=== PATIENT | male | born 1935 | race Caucasian/White ===

== ENCOUNTER 2017-04-13 22:04 | Emergency (ER) | payer MEDICARE, BC ==
[2017-04-13] MEDS ORDERED: Ondansetron INJ* 2 MG/ML VIAL IV ONE (22:18)
[2017-04-13] MEDS ORDERED: NS 0.9% 1000 ML* 1,000 ML IV ONE (22:18)
[2017-04-13 22:37] LABS: Hematocrit 46 % (42-52); Hemoglobin 15.5 g/dl (14.0-18.0); Mean Corpuscular HGB Conc 34 g/dl (31-36); Mean Corpuscular Hemoglobin 31 pg (27-31); Mean Corpuscular Volume 91 fL (80-94); Mean Platelet Volume 10 um3 (7.4-10.4); Red Blood Count 5.09 10^6/ul (4.0-5.4); Red Cell Distribution Width 15 % (10.5-15); White Blood Count 15.1 10^3/ul (3.5-10.8)
[2017-04-13 22:42] LABS: Comments Flag Yes
[2017-04-13 22:43] LABS: Add Diff/Slide Review? Slide Review Added
[2017-04-13 22:52] LABS: Albumin 4.1 g/dL (3.2-5.2); BUN/Creatinine Ratio 13.5 (8-20); Calcium 9.2 mg/dL (8.6-10.3); EGFR African American 21.7 (>60); EGFR Non-African American 16.9 (>60); Globulin 2.8 g/dL (2-4); Magnesium 1.8 mg/dL (1.9-2.7); Potassium 4.7 mmol/L (3.5-5.0); Total Bilirubin 0.8 mg/dL (0.2-1.0); Total Protein 6.9 g/dL (6.4-8.9)
[2017-04-13 22:54] LABS: Troponin I 0.02 ng/mL (<0.04)
--- NOTE | 2017-04-13 23:27 | ED ---
Eliana Tanner Erika, scribed for Luis Gomes MD on 04/13/17 at 2223 . Complex/Multi-Sys Presentation - HPI Summary HPI Summary: Patient is an 82-year-old male presenting to the ED with a CC of weakness. Per family, patient was started on an antibiotic on 04/09/2017 for right lower extremity cellulitis. Pain in leg is still noted. Antibiotics made pt nauseated , so he has had decreased PO intake - family states pt is dehydrated. Pt discontinued use of the antibiotic today without consulting his doctor because they were concerned about low PO intake since pt has DM. Pt has been increasingly weak, with SOB worse than baseline. Pt also reported he "thought he had a UTI" per family. - History Of Current Complaint Chief Complaint: EDWeakness Hx Obtained From: Patient, Family/Lottery Sales Clerk Onset/Duration: Gradual Onset, Lasting Days, Still Present Timing: Constant Severity Currently: Moderate Severity Initially: Mild Location: Pain At: - R lower extremity Aggravating Factor(s): Nausea secondary to antibiotics Associated Signs And Symptoms: Positive: Weakness, Nausea, Decreased Oral Intake , Other - UTI sx - Allergies/Home Medications Allergies/Adverse Reactions: Allergies Allergy/AdvReac Type Severity Reaction Status Date / Time Cephalexin [From Keflex] Allergy Rash Verified 06/19/16 06:58 Diphenhydramine Allergy Itching Verified 06/12/16 08:07 Home Medications: Home Medications Amoxicillin/Clavulanate TAB* [Augmentin TAB 500 mg*] 500 mg PO BID 04/13/17 [ History Confirmed 04/13/17] Magnesium Oxide TAB* [MagOx 400 TAB*] 400 mg PO DAILY 04/13/17 [History Confirmed 04/13/17] Metoprolol & Hydrochlorothiazi [Metoprolol Succinate ER/H 50-12.5 mg] 1 tab PO DAILY 04/13/17 [History Confirmed 04/13/17] Repaglinide TAB* [Prandin TAB*] 1 mg PO AC 04/13/17 [History Confirmed 04/13/17] PMH/Surg Hx/FS Hx/Imm Hx Endocrine/Hematology History: Reports: Hx Diabetes - TYPE 2, Hx Thyroid Disease - HYPOTHYROIDISM Denies: Hx Anemia Cardiovascular History: Reports: Hx Hypertension - CONTROL WITH MED, Other Cardiovascular Problems/Disorders - DVT - 5-6 YEARS AGO Respiratory History: Reports: Hx Pulmonary Embolism - 5-6 YEARS AGO, Other Respiratory Problems/Disorders - HX OF DVT AND PE GI History: Reports: Hx Gastroesophageal Reflux Disease - CONTROL WITH MEDS Denies: Hx Jaundice Musculoskeletal History: Reports: Hx Arthritis Sensory History: Reports: Hx Cataracts - BILATERAL, Hx Contacts or Glasses - GLASSES, Hx Hearing Aid - [place] - HAS HEARING AIDES - BUT DOES NOT WEAR Opthamlomology History: Reports: Hx Cataracts - BILATERAL, Hx Contacts or Glasses - GLASSES - Cancer History Cancer Type, Location and Year: melanoma - Surgical History Surgery Procedure, Year, and Place: umbilical hernia repair. carpal tunnel. RADICAL NECK SURGERY, [facility] Hx Anesthesia Reactions: No Infectious Disease History: No Infectious Disease History: Reports: Hx Shingles Denies: History Other Infectious Disease, Traveled Outside the [place] in Last 30 Days - Family History Family History: Denies FHx anesthesia reaction - Social History Alcohol Use: Rare Hx Substance Use: No Substance Use Type: Reports: None Hx Tobacco Use: Yes Smoking Status (MU): Former Smoker Type: Cigarettes Have You Smoked in the Last Year: No Review of Systems Positive: Shortness Of Breath Positive: Nausea - with decreased PO intake Genitourinary: Other - UTI sx Skin: Other - Cellulitis right lower extremity with pain Positive: Weakness - generalized All Other Systems Reviewed And Are Negative: Yes Physical Exam Triage Information Reviewed: Yes Vital Signs On Initial Exam: Initial Vitals Temp Pulse Resp BP Pulse Ox 98.2 F 78 30 147/69 96 04/13/17 22:06 04/13/17 22:06 04/13/17 22:06 04/13/17 22:06 04/13/17 22:06 Vital Signs Reviewed: Yes Appearance: Positive: No Pain Distress Skin: Positive: Warm Head/Face: Positive: Normal Head/Face Inspection Eyes: Positive: PEE ENT: Positive: Hearing grossly normal Neck: Positive: Supple Respiratory/Lung Sounds: Positive: Breath Sounds Present Cardiovascular: Positive: RRR Abdomen Description: Positive: Nontender, Soft Musculoskeletal: Positive: Other - lt lower leg, mild erythema and warmth Neurological: Positive: Alert, Oriented to Person Place, Time Diagnostics - Vital Signs Vital Signs Temp Pulse Resp BP Pulse Ox 04/13/17 22:06 98.2 F 78 30 147/69 96 - Laboratory Lab Results: Lab Results 0504/13/17 04/13/17 Range/Units 22:20 22:20 22:20 WBC 15.1 H (3.5-10.8) 10^3/ul RBC 5.09 (4.0-5.4) 10^6/ul Hgb 15.5 (14.0-18.0) g/dl Hct 46 (42-52) % MCV 91 (80-94) fL MCH 31 (27-31) pg MCHC 34 (31-36) g/dl RDW 15 (10.5-15) % Plt Count 113 L (150-450) 10^3/ul MPV 10 (7.4-10.4) um3 Neut % (Auto) 45.6 (38-83) % Lymph % (Auto) 42.5 (25-47) % Fergus % (Auto) 10.2 H (1-9) % Eos % (Auto) 0.2 (0-6) % Baso % (Auto) 1.5 (0-2) % Absolute Neuts (auto) 6.9 (1.5-7.7) 10^3/ul Absolute Lymphs (auto) 6.4 H (1.0-4.8) 10^3/ul Absolute Monos (auto) 1.5 H (0-0.8) 10^3/ul Absolute Eos (auto) 0 (0-0.6) 10^3/ul Absolute Basos (auto) 0.2 (0-0.2) 10^3/ul Absolute Nucleated RBC 0.02 10^3/ul Nucleated RBC % 0.1 Hem Pathologist Commnt Pending Sodium 131 L (133-145) mmol/L Potassium 4.7 (3.5-5.0) mmol/L Chloride 100 L (101-111) mmol/L Carbon Dioxide 21 L (22-32) mmol/L Anion Gap 10 (2-11) mmol/L BUN 47 H (6-24) mg/dL Creatinine 3.49 H (0.67-1.17) mg/dL Est GFR ( Amer) 21.7 (>60) Est GFR (Non-Af Amer) 16.9 (>60) BUN/Creatinine Ratio 13.5 (8-20) Glucose 154 H (70-100) mg/dL Lactic Acid 1.5 (0.5-2.0) mmol/L Calcium 9.2 (8.6-10.3) mg/dL Magnesium 1.8 L (1.9-2.7) mg/dL Total Bilirubin 0.80 (0.2-1.0) mg/dL AST 14 (13-39) U/L ALT 10 (7-52) U/L Alkaline Phosphatase 61 (34-104) U/L Troponin I 0.02 (<0.04) ng/mL B-Natriuretic Peptide ( - 100) pg/mL Total Protein 6.9 (6.4-8.9) g/dL Albumin 4.1 (3.2-5.2) g/dL Globulin 2.8 (2-4) g/dL Albumin/Globulin Ratio 1.5 (1-3) // Range/Units 22:20 WBC (3.5-10.8) 10^3/ul RBC (4.0-5.4) 10^6/ul Hgb (14.0-18.0) g/dl Hct (42-52) % MCV (80-94) fL MCH (27-31) pg MCHC (31-36) g/dl RDW (10.5-15) % Plt Count (150-450) 10^3/ul MPV (7.4-10.4) um3 Neut % (Auto) (38-83) % Lymph % (Auto) (25-47) % Fergus % (Auto) (1-9) % Eos % (Auto) (0-6) % Baso % (Auto) (0-2) % Absolute Neuts (auto) (1.5-7.7) 10^3/ul Absolute Lymphs (auto) (1.0-4.8) 10^3/ul Absolute Monos (auto) (0-0.8) 10^3/ul Absolute Eos (auto) (0-0.6) 10^3/ul Absolute Basos (auto) (0-0.2) 10^3/ul Absolute Nucleated RBC 10^3/ul Nucleated RBC % Hem Pathologist Commnt Sodium (133-145) mmol/L Potassium (3.5-5.0) mmol/L Chloride (101-111) mmol/L Carbon Dioxide (22-32) mmol/L Anion Gap (2-11) mmol/L BUN (6-24) mg/dL Creatinine (0.67-1.17) mg/dL Est GFR ( Amer) (>60) Est GFR (Non-Af Amer) (>60) BUN/Creatinine Ratio (8-20) Glucose (70-100) mg/dL Lactic Acid (0.5-2.0) mmol/L Calcium (8.6-10.3) mg/dL Magnesium (1.9-2.7) mg/dL Total Bilirubin (0.2-1.0) mg/dL AST (13-39) U/L ALT (7-52) U/L Alkaline Phosphatase (34-104) U/L Troponin I (<0.04) ng/mL B-Natriuretic Peptide 205 H ( - 100) pg/mL Total Protein (6.4-8.9) g/dL Albumin (3.2-5.2) g/dL Globulin (2-4) g/dL Albumin/Globulin Ratio (1-3) Result Diagrams: 04/13/17 22:20 04/13/17 22:20 Lab Statement: Any lab studies that have been ordered have been reviewed, and results considered in the medical decision making process. - Radiology CXR Xray Interpretation: No Acute Changes Radiology Interpretation Completed By: ED Physician - EKG 22:17 EKG Interpretation: Atrial Fibrillation with moderate ventricular response at 74 bpm Re-Evaluation - Re-Evaluation First Eval Re-Evaluation Time: 23:45 Change: Improved Comment: Discussed results with patient. Patient requests discharge at this time. Complex Multi-Symp Course/Dx Assessment/Plan: An 82 y/o M presents to the ED with a CC of generalized weakness after taking antibiotics for his cellulitis, as antibiotics made pt nauseated leading to decreased PO intake. Pt is being treated for RLE cellulitis. Pt is given IV fluids and zofran in the ED course. On re-evaluation , patient requests discharge, stating that he wants to go home. Patient is advised to continue taking his prescribed medications and to keep his follow up appointment with his PCP on Friday. - Diagnoses Provider Diagnoses: Cellulitis Discharge - Discharge Plan Condition: Stable Disposition: HOME Patient Education Materials: Cellulitis (ED) Referrals: El Ortiz MD [Primary Care Provider] - 2 Days Additional Instructions: Please continue your present medications as previously prescribed. Keep the doctor's appointment you have on Friday as follow up. The documentation as recorded by the Eliana luu Erika accurately reflects the service I personally performed and the decisions made by me, Luis Gomes MD.
[2017-04-14] MEDS ORDERED: Ondansetron TAB* 4 MG ONE (00:10)
[2017-04-14] MEDS ORDERED: Ondansetron ODT TAB* 4 MG PO ONE (00:11)
[2017-04-14 00:15] VITALS: BP 133/80
--- NOTE | 2017-04-14 06:56 | RAD ---
INDICATION: Weakness COMPARISON: Chest x-ray May 20, 2016 TECHNIQUE: PA and lateral views were obtained. FINDINGS: Bones/Soft Tissues: There are no acute bony findings. Cardiomediastinal: The cardiomediastinal silhouette is normal. Lungs: There are no infiltrates. Pleura: There are no pleural effusions. Other: None IMPRESSION: NO ACTIVE DISEASE.
== END 2017-04-14 00:31 | disposition home or self-care (01) ==
LOC: ED 22:04
DX: L03.90 Cellulitis, unspecified (principal); R53.1 Weakness; R11.0 Nausea; Z87.891 Personal history of nicotine dependence; R06.02 Shortness of breath
CPT/HCPCS: 36415; 71020; 80053; 83605; 83735; 83880; 84484; 85025; 85060; 93005; 96374; 99283; A9270-GY; J2405

== ENCOUNTER 2019-02-08 02:16 | Inpatient (IN) | payer MEDICARE, BC ==
--- NOTE | 2019-02-08 02:45 | ED ---
GI/ HPI - HPI Summary HPI Summary: This patient is an 84 year old M presenting to [facility] accompanied by family with a chief complaint of dysuria that began approximately one week ago. The patient rates the pain 10/10 in severity. Symptoms aggravated by nothing. Symptoms alleviated by nothing. Patient reports weakness, hematuria, decreased appetite, nausea, chills, suprapubic abd pain, and SOB. - History of Current Complaint Chief Complaint: EDShortnessOfBreath Time Seen by Provider: 02/08/19 02:34 Stated Complaint: SOB PER PT'S DAUGHTER Hx Obtained From: Patient Onset/Duration: Started Weeks Ago, Atraumatic, Still Present Timing: Constant Severity: Severe Current Severity: Severe Pain Intensity: 10 Location of Pain: Suprapubic Associated Signs and Symptoms: Positive: Other: - Positive weakness, hematuria, decreased appetite, nausea, chills, suprapubic abd pain, and SOB. Aggravating Factor(s): Nothing Alleviating Factor(s): Nothing - Additional Pertinent History Primary Care Physician: [id number] - Allergy/Home Medications Allergies/Adverse Reactions: Allergies Allergy/AdvReac Type Severity Reaction Status Date / Time cephalexin [From Keflex] Allergy Rash Verified 02/08/19 03:10 diphenhydramine Allergy Itching Verified 02/08/19 03:10 Home Medications: Home Medications Insulin Glargine,Hum.rec.anlog [Basaglar Kwikpen U-100] 20 - 24 units SUBCUT BID 02/08/19 [History Confirmed 02/08/19] Insulin Lispro [Humalog Kwikpen U-100] 30 units SUBCUT DAILY WITH MEAL 02/08/19 [History Confirmed 02/08/19] Mirabegron (NF) [Myrbetriq (NF)] 25 mg PO DAILY 02/08/19 [History Confirmed ] PMH/Surg Hx/FS Hx/Imm Hx Previously Healthy: No Endocrine/Hematology History: Reports: Hx Diabetes - TYPE 2, Hx Thyroid Disease - HYPOTHYROIDISM Denies: Hx Anemia Cardiovascular History: Reports: Hx Hypertension - CONTROL WITH MED, Other Cardiovascular Problems/Disorders - DVT - 5-6 YEARS AGO Respiratory History: Reports: Hx Pulmonary Embolism - 5-6 YEARS AGO, Other Respiratory Problems/Disorders - HX OF DVT AND PE GI History: Reports: Hx Gastroesophageal Reflux Disease - CONTROL WITH MEDS Denies: Hx Jaundice Musculoskeletal History: Reports: Hx Arthritis Sensory History: Reports: Hx Cataracts - BILATERAL, Hx Contacts or Glasses - GLASSES, Hx Hearing Aid - VERY [place] - HAS HEARING AIDES - BUT DOES NOT WEAR Opthamlomology History: Reports: Hx Cataracts - BILATERAL, Hx Contacts or Glasses - GLASSES - Cancer History Cancer Type, Location and Year: melanoma - Surgical History Surgery Procedure, Year, and Place: umbilical hernia repair. carpal tunnel. RADICAL NECK SURGERY, [facility] Hx Anesthesia Reactions: No Infectious Disease History: No Infectious Disease History: Reports: Hx Shingles Denies: History Other Infectious Disease, Traveled Outside the [place] in Last 30 Days - Family History Known Family History: Positive: Other Family History: Denies FHx anesthesia reaction - Social History Occupation: Retired Lives: With Family Alcohol Use: Rare Hx Substance Use: No Substance Use Type: Reports: None Hx Tobacco Use: Yes Smoking Status (MU): Former Smoker Type: Cigarettes Have You Smoked in the Last Year: No Review of Systems Positive: Chills Positive: Shortness Of Breath Positive: Abdominal Pain, Nausea, Other - Positive decreased appetite Positive: dysuria, hematuria Positive: Weakness All Other Systems Reviewed And Are Negative: Yes Physical Exam - Summary Physical Exam Summary: VITAL SIGNS: Reviewed. GENERAL: Patient is a well-developed and nourished male who is lying comfortable in the stretcher. Patient is not in any acute respiratory distress. HEAD AND FACE: No signs of trauma. No ecchymosis, hematomas or skull depressions. No sinus tenderness. EYES: PERRLA, EOMI x 2, No injected conjunctiva, no nystagmus. EARS: Hearing grossly intact. Ear canals and tympanic membranes are within normal limits. MOUTH: Oropharynx within normal limits. NECK: Supple, trachea is midline, no adenopathy, no JVD, no carotid bruit, no c- spine tenderness, neck with full ROM. CHEST: Symmetric, no tenderness at palpation LUNGS: Clear to auscultation bilaterally. No wheezing or crackles. Decreased breath sounds bilaterally CVS: Regular rate and irregular rhythm, S1 and S2 present, no murmurs or gallops appreciated. ABDOMEN: Soft, non-tender. Distention. No rebound no guarding, and no masses palpated. Bowel sounds are normal. EXTREMITIES: FROM in all major joints, no edema, no cyanosis or clubbing. NEURO: Alert and oriented x 3. No acute neurological deficits. Speech is normal and follows commands. SKIN: Dry and warm Triage Information Reviewed: Yes Vital Signs On Initial Exam: Initial Vitals Temp Pulse Resp BP Pulse Ox 98.7 F 89 18 149/102 91 02/08/19 02:25 02/08/19 02:25 02/08/19 02:25 02/08/19 02:25 02/08/19 02:25 Vital Signs Reviewed: Yes Diagnostics - Vital Signs Vital Signs Temp Pulse Resp BP Pulse Ox 02/08/19 02:37 87 128/84 86 02/08/19 02:35 80 92 02/08/19 02:25 98.7 F 89 18 149/102 91 - Laboratory Result Diagrams: 02/08/19 03:13 02/08/19 03:13 Lab Statement: Any lab studies that have been ordered have been reviewed, and results considered in the medical decision making process. - Radiology CXR Radiology Interpretation Completed By: ED Physician Summary of Radiographic Findings: CXR reveals, per ED physician, bilateral basal infiltrate. - CT CT Abdomen and Pelvis CT Interpretation Completed By: Radiologist Summary of CT Findings: CT abdomen and pelvis reveals, per radiologist, Bilateral renal cysts. Infiltrates in the lower lobes bilaterally. Old granulomatous disease. Thickened bladder wall suggesting cystitis. Enlarged prostate gland. Changes involving the spine, as described above. Cholelithiasis. Colonic diverticulosis. ED physician has reviewed this radiology report. - EKG 0407 Cardiac Rate: NL EKG Rhythm: Atrial Flutter - 70 BPM Summary of EKG Findings: An EKG taken at 0407 reveals Aflutter 4:1 at rate of 70 BPM, left axis deviation, and no acute ischemic changes. GIGU Course/Dx - Course Course Of Treatment: This patient is an 84 year old M presenting to [facility] accompanied by family with a chief complaint of dysuria that began approximately one week ago. Physical Exam Findings: Decreased breath sounds bilaterally. Irregular rhythm. Abd distension. An EKG taken at 0407 reveals Aflutter 4:1 at rate of 70 BPM, left axis deviation, and no acute ischemic changes. CXR reveals, per ED physician, bilateral basal infiltrate. CT abdomen and pelvis reveals, per radiologist, Bilateral renal cysts. Infiltrates in the lower lobes bilaterally. Old granulomatous disease. Thickened bladder wall suggesting cystitis. Enlarged prostate gland. Changes involving the spine, as described above. Cholelithiasis. Colonic diverticulosis. Bloodwork and UA obtained. In the ED course the patient was given duoneb, albuterol, fluids, phenazopyridine, and Zosyn. Consult with Dr. Devine (hospitalist) at 0522. He agrees to admit the pt for further evaluation. The patient is agreeable with this plan. - Diagnoses Provider Diagnoses: UTI (urinary tract infection), Pneumonia - Physician Notifications Discussed Care Of Patient With: Rodríguez Devine Time Discussed With Above Provider: 05:22 Instructed by Provider To: Other - Consult with Dr. Devine (hospitalist) at 0522. He agrees to admit the pt for further evaluation. - Critical Care Time Critical Care Time: 30-74 min - 45 min Discharge - Sign-Out/Discharge Documenting (check all that apply): Patient [place]arture [place] [facility] [place] Received Moderate/Deep Sedation with Procedure: No - Discharge Plan Condition: Stable Disposition: ADMITTED TO [facility] Referrals: El Ortiz MD [Primary Care Provider] - - Attestation Statements Document Initiated by Scribe: Yes Documenting Scribe: Ainsley Smart Provider For Whom Sofyibe is Documenting (Include Credential): Dr. Kim Bernard MD Scribe Attestation: I, Ainsley Smart, scribed for Dr. Kim Bernard MD on 02/08/19 at 0529. Status of Scribe Document: Ready
[2019-02-08] MEDS ORDERED: Albuterol/Ipratropium NEB.SOL* Albuterol 2.5 MG/Ipratropium 0.5 MG 3 ML INH ONE (02:47)
[2019-02-08] MEDS ORDERED: Albuterol 2.5 MG/3 ML NEB.SOL* (0.083%) INH PRN (02:47)
[2019-02-08 03:25] LABS: Hematocrit 48 % (36-46); Hemoglobin 15.8 g/dL (14.0-18.0); Mean Corpuscular HGB Conc 33 g/dL (31-36); Mean Corpuscular Hemoglobin 30 pg (27-31); Mean Corpuscular Volume 90 fL (80-94); Mean Platelet Volume 9.3 fL (7.4-10.4); Platelet Count 111 10^3/uL (150-450); Red Blood Count 5.29 10^6 /uL (4.18-5.48); Red Cell Distribution Width 15 % (10.5-15); White Blood Count 14.2 10^3/uL (3.5-10.8)
[2019-02-08 03:31] LABS: ABS Basophils 0 10^3/ul (0-0.2); ABS Eosinophils 0 10^3/ul (0-0.6); ABS Lymphocytes 3.1 10^3/ul (1.0-4.8); ABS Monocytes 1.7 10^3/ul (0-0.8); ABS Neutrophils 9.4 10^3/ul (1.5-7.7); ABS Nucleated RBC 0 10^3/ul
[2019-02-08 03:35] LABS: Activated Partial Thrombo Time 39.2 seconds (26.0-36.3); INR 2.01 (0.77-1.02)
[2019-02-08 03:38] LABS: Urine Appearance Turbid; Urine Bacteria Absent (Absent); Urine Bilirubin Negative (Negative); Urine Blood 3+ (Negative); Urine Glucose 1+(50 mg/dL) (Negative); Urine Ketones Negative (Negative); Urine Nitrite Negative (Negative); Urine Protein 2+(100 mg/dL) (Negative); Urine Red Blood Cell 3+(>10/hpf) (Absent); Urine Specific Gravity 1.012 (1.010-1.030); Urine Urobilinogen Negative (Negative); Urine White Blood Cell 3+(>20/hpf) (Absent)
[2019-02-08] MEDS: NS 0.9% 1000 ML** 2,000 ML IV ONE ×2 (03:41→05:40)
[2019-02-08 03:44] LABS: Urine Color Red
[2019-02-08 03:49] LABS: Eosinophil % 0.2 %; Lymphocyte % 21.6 %; Nucleated Red Blood Cells % 0
[2019-02-08 03:54] LABS: ALT 10 U/L (7-52); AST 13 U/L (13-39); Albumin 4.1 g/dL (3.2-5.2); Albumin/Globulin Ratio 1.5 (1-3); Alkaline Phosphatase 86 U/L (34-104); Anion Gap 11 mmol/L (2-11); BUN/Creatinine Ratio 16.8 (8-20); Blood Urea Nitrogen 62 mg/dL (6-24); CO2 Carbon Dioxide 25 mmol/L (22-32); Calcium 9.6 mg/dL (8.6-10.3); Chloride 101 mmol/L (101-111); EGFR Non-African American 15.7 (>60); Globulin 2.8 g/dL (2-4); Glucose 203 mg/dL (70-100); Potassium 4.9 mmol/L (3.5-5.0); Sodium 137 mmol/L (135-145); Total Protein 6.9 g/dL (6.4-8.9)
[2019-02-08] MEDS ORDERED: Piperacillin/Tazobac ADVAN(*) 3.375 GM in NS 0.9% 100 ML* 100 ML IVPB ONE (03:58)
[2019-02-08 04:01] LABS: Troponin I 0.04 ng/mL (<0.04)
[2019-02-08 04:21] LABS: Influenza A Molecular NEGATIVE (Negative); Influenza B Molecular NEGATIVE (Negative)
[2019-02-08] MEDS ORDERED: Phenazopyridine TAB* 100 MG PO ONE (04:57)
[2019-02-08] MEDS ORDERED: Acetaminophen TAB* 325 MG PO PRN (08:42)
[2019-02-08] MEDS ORDERED: traMADol TAB* 50 MG PO PRN (08:45)
[2019-02-08] MEDS ORDERED: Dextrose 50% Syringe 50 ML* 25 GM/50 ML SYRINGE IV PUSH PRN ×2 (08:54→12:24)
--- NOTE | 2019-02-08 10:57 | HP ---
HISTORY AND PHYSICAL: DATE OF ADMISSION: 02/08/19 TIME OF ADMISSION: 9 a.m. PRIMARY CARE PHYSICIAN: El Ortiz MD. CHIEF COMPLAINT: "My daughter recommended it." HISTORY OF PRESENT ILLNESS: This is an 84-year-old man with history of BPH, COPD, and diabetes, who presents to the ED with dysuria for the past 2 days. He says that he has had bladder infections before, but they have never been this severe. The pain when he is urinating is excruciating and so they decided to come to the emergency room last night. He has not had any fevers, flank pain. His daughter does report that he has had decreased energy, decreased appetite, and some nausea. In the ED, he had a CT abdomen and pelvis, which showed a thickened bladder wall suggesting flatus, positive urinalysis, and also infiltrates in his lower lobes bilaterally. His daughter was apprised here that he had infiltrates. He has shortness of breath always, but it is unchanged from baseline. He also always has a cough and they agree that it is unchanged from baseline as well. On further questioning, he thinks he may have increased sputum production, but he would not have noticed it unless we had asked. PAST MEDICAL HISTORY: COPD, he has never been on home oxygen; atrial flutter, on anticoagulation; CKD stage 4; BPH; type 2 diabetes; hypertension; history of DVT 5 years ago; and PE. His family says he has a history of CHF and follows with a pin cleaner in [place]. He had throat cancer in the 70s. MEDICATIONS: 1. He takes Humalog 10 units before dinner. 2. Basaglar 24 units at night and 20 units in the morning. 3. Lasix 20 mg daily. 4. Metoprolol/HCTZ 50/12.5 mg daily. 5. Allopurinol 100 mg daily. 6. Lipitor 20 mg q.h.s. 7. Levothyroxine 125 mcg daily at bedtime. 8. Mag-Ox 400 mg daily. 9. Mirabegron 25 mg daily. 10. Omeprazole 20 mg daily. 11. Terazosin 2 mg b.i.d. 12. Tramadol 100 mg q.12 p.r.n. pain. 13. Warfarin 2.5 mg daily. ALLERGIES: KEFLEX and BENADRYL. FAMILY HISTORY: Positive for Hodgkin's lymphoma in his mother. SOCIAL HISTORY: He lives with his , Livia; and his daughter, Mary, is living with them and helping them. He is a former smoker and quit 40 years ago. He smoked for 25 years. He drinks 1 beer per week. He does not have an advance directives. REVIEW OF SYSTEMS: As per the HPI. Remainder of 14-point review of systems is negative. PHYSICAL EXAMINATION GENERAL: Alert, elderly man, in no distress. He is extremely hard of hearing. VITAL SIGNS: Temperature 98 degrees, heart rate 85, respiratory rate 16, pulse ox 94% on 3 L, blood pressure 153/97. HEENT: Pupils are 3 mm bilaterally and reactive to light. Oral mucosa is dry. Pharynx is erythematous with no exudates. He has dentures in place. NECK: He has a left neck deformity from a prior surgery. No cervical adenopathy. CHEST: He has an irregular rhythm with no murmur. His lungs are clear bilaterally. ABDOMEN: Soft, nontender, nondistended. It is protuberant and obese. He has no CVA tenderness. No suprapubic tenderness. EXTREMITIES: 1+ pitting edema to his knees. He has some chronic skin changes in the right roth. NEUROLOGIC: His strength is 5/5 and is oriented x3. DIAGNOSTIC STUDIES/LAB DATA: White blood cells 14.2, hemoglobin 15.8, platelets 111. INR 2.01. Sodium 137, potassium 4.9, chloride 101, bicarb 25, BUN 62, creatinine 3.69, glucose 203, lactic acid 1.4, troponin 0.04, BNP 163. Urinalysis has 2+ protein, 3+ blood, 3+ leuk esterase, 3+ WBCs, and influenza A and B are negative. CT abdomen and pelvis showed bilateral renal cysts, infiltrates in the lower lobes bilaterally, old granulomatous disease, thickened bladder wall suggesting cystitis, enlarged prostate gland, changes involving the spine including multilevel degenerative disk disease, cholelithiasis, and colonic diverticulosis. EKG shows atrial flutter with a 4:1 block and left axis deviation. ASSESSMENT AND PLAN: This is an 84-year-old man with history of atrial flutter , chronic kidney disease, and diabetes, who presents to the emergency department with dysuria and was found to have a urinary tract infection and bilateral lung infiltrates. 1. Acute cystitis versus prostatitis. Urine culture is pending. Blood cultures have also been sent and he has received Zosyn in the emergency department. I would like to start him on ceftriaxone to cover urinary and pulmonary sources; however, he has an allergy to KEFLEX listed and he says he has no idea what it was and it was years ago. His daughter is going to ask his and report back to see if we can start a cephalosporin. 2. Bilateral lung infiltrates. He has no pulmonary complaints except a possible increase in sputum production, so we will culture his sputum. I will get urine antigens and we will wait to hear his reaction to cephalosporins. 3. Acute kidney injury on chronic kidney disease. This appears to be an acute kidney injury, though our most recent creatinine was July 2018. His BUN is also certainly elevated from then. I suspect this is related to infection and I will hold his Lasix. He has received 1 L of IV fluid in the emergency department. His family reports that history of heart failure. We will hold off on any more fluids and allow him to equilibrate. 4. Atrial flutter. I am continuing his metoprolol. His INR is at goal, so continuing his warfarin as well. 5. Chronic obstructive pulmonary disease. His family requests test for qualification of oxygen. Once he gets closer to discharge, we can do an ambulatory pulse ox or a nocturnal pulse ox. 6. Hypertension. I am holding his HCTZ in the setting of volume depletion. He is normotensive. 7. DVT prophylaxis. Contraindicated in the setting of therapeutic anticoagulation. 8. Diet. Unrestricted. 9. Type 2 diabetes. I am continuing his home Humalog dose and converting his Basaglar to Lantus. [id number]/[facility] #: [id number] [facility]
[2019-02-08] MEDS: Insulin GLARGINE(*) 1 UNITS UNIT SUBCUT SCH ×2 (11:07→23:41)
[2019-02-08] MEDS: Metoprolol Succinate XL TAB* 50 MG PO SCH (11:07)
[2019-02-08] MEDS: Allopurinol TAB* 100 MG PO SCH (11:07)
[2019-02-08] MEDS: Magnesium Oxide TAB* 400 MG PO SCH (11:07)
[2019-02-08] MEDS: Terazosin CAP* 1 MG PO SCH ×2 (11:09→23:42)
[2019-02-08] MEDS: PTO: Mirabegron (NF) 25 MG TAB PO SCH (11:11)
[2019-02-08] MEDS: Insulin LISPRO* 1 UNITS UNIT SUBCUT SCH ×4 (12:52→23:40)
[2019-02-08] MEDS: cefTRIAXone(*) 1 GM in NS 0.9% 50 ML* 50 ML IVPB SCH (12:52)
[2019-02-08] MEDS: Warfarin TAB(*) 2.5 MG PO SCH (17:25)
[2019-02-08] MEDS: Pantoprazole TAB * 40 MG TAB PO SCH (17:25)
[2019-02-08] MEDS ORDERED: Insulin GLARGINE(*) 1 UNITS UNIT SUBCUT SCH (18:00)
[2019-02-08] MEDS: Atorvastatin* 20 MG TAB PO SCH (23:42)
[2019-02-08] MEDS: Levothyroxine TAB* 137 MCG TAB PO SCH (23:42)
[2019-02-09] MEDS ORDERED: GuaiFENesin DM* 5 ML UDC PO PRN (00:21)
[2019-02-09 06:23] LABS: Hematocrit 42 % (36-46); Hemoglobin 13.9 g/dL (14.0-18.0); Mean Corpuscular HGB Conc 33 g/dL (31-36); Mean Corpuscular Hemoglobin 30 pg (27-31); Mean Corpuscular Volume 90 fL (80-94); Red Blood Count 4.68 10^6 /uL (4.18-5.48); Red Cell Distribution Width 15 % (10.5-15); White Blood Count 11.2 10^3/uL (3.5-10.8)
[2019-02-09 06:49] LABS: ABS Basophils 0 10^3/ul (0-0.2); ABS Eosinophils 0.1 10^3/ul (0-0.6); ABS Lymphocytes 3.5 10^3/ul (1.0-4.8); ABS Monocytes 1.4 10^3/ul (0-0.8); ABS Neutrophils 6.3 10^3/ul (1.5-7.7); ABS Nucleated RBC 0 10^3/ul; Eosinophil % 0.6 %; Lymphocyte % 31.3 %; Mean Platelet Volume 9.6 fL (7.4-10.4); Nucleated Red Blood Cells % 0.2; Platelet Count 95 10^3/uL (150-450)
[2019-02-09 07:05] LABS: BUN/Creatinine Ratio 17.5 (8-20); Calcium 8.8 mg/dL (8.6-10.3); EGFR African American 20.8 (>60); EGFR Non-African American 17.2 (>60); Potassium 4.9 mmol/L (3.5-5.0)
--- NOTE | 2019-02-09 08:10 | PN ---
Subjective - Subjective Reason for Note: Progress Note History: He is deaf. I obtained a history from the patient and reviewing Dr. Raiza Rodriguez's note. He has chronic coughing - he worries he has TB. However, this was exacerbated 1 day prior to admission. He also developed severe pain on urination - with residual pain in his bladder. He also has increased frequency of urination. He states he feels a little improved this morning. Active Problems: Active Problems Lung infiltrate on CT (Acute) R91.8 Urinary tract infection (Acute) Anticoagulated on Coumadin (Chronic) Z51.81, Z79.01 Atrial fibrillation and flutter (Chronic) I48.91, I48.92 Chronic kidney disease, stage 4 (severe) (Chronic) N18.4 Essential hypertension (Chronic) I10 History of melanoma (Chronic) Z85.820 History of pulmonary embolism (Chronic) Z86.711 Hyperlipidemia (Chronic) E78.5 Primary hypothyroidism (Chronic) E03.9 Secondary hyperparathyroidism (of renal origin) (Chronic) N25.81 Sleep apnea (Chronic) G47.30 Type 2 diabetes mellitus (Chronic) Current Medications: Current Medications Acetaminophen (Tylenol Tab*) 650 mg PO Q4H PRN PRN Reason: FEVER/PAIN Albuterol (Ventolin 2.5 Mg/3 Ml Neb.Cindy*) 2.5 mg INH Q20M PRN PRN Reason: SHORTNESS OF BREATH Allopurinol (Zyloprim Tab*) 100 mg PO QAM [facility] Last Admin: 02/08/19 11:07 Dose: 100 mg Atorvastatin Calcium (Lipitor*) 20 mg PO BEDTIME [facility] Last Admin: 02/08/19 23:42 Dose: 20 mg Dextrose (D50w Syringe 50 Ml*) 12.5 gm IV PUSH .FOR FS < 60 - SS PRN PRN Reason: FS < 60 Dextrose (D50w Syringe 50 Ml*) 12.5 gm IV PUSH .FOR FS < 60 - SS PRN PRN Reason: FS < 60 Guaifenesin/Dextromethorphan (Robitussin Dm*) 10 ml PO Q6H PRN PRN Reason: COUGH Ceftriaxone Sodium 1 gm/ (Sodium Chloride) 50 mls @ 200 mls/hr IVPB Q24H [facility] Last Admin: 02/08/19 12:52 Dose: 200 mls/hr Insulin Glargine (Lantus(*)) 16 units SUBCUT DAILY [facility] Last Admin: 02/08/19 11:07 Dose: 16 unit Insulin Glargine (Lantus(*)) 20 units SUBCUT QPM [facility] Last Admin: 02/08/19 23:41 Dose: 20 units Insulin Human Lispro (Humalog*) 10 units SUBCUT 1700 [facility] Last Admin: 02/08/19 17:26 Dose: 10 unit Insulin Human Lispro (Humalog*) 0 units SUBCUT ACHS [facility]; Protocol Last Admin: 02/08/19 23:40 Dose: 3 units Levothyroxine Sodium (Synthroid Tab*) 137 mcg PO BEDTIME [facility] Last Admin: 02/08/19 23:42 Dose: 137 mcg Magnesium Oxide (Magox 400 Tab*) 400 mg PO DAILY [facility] Last Admin: 02/08/19 11:07 Dose: 400 mg Metoprolol Succinate (Toprol Xl Tab*) 50 mg PO DAILY [facility] Last Admin: 02/08/19 11:07 Dose: 50 mg Mirabegron (Myrbetriq (Nf)) 25 mg PO DAILY [facility] Last Admin: 02/08/19 11:11 Dose: Not Given Pantoprazole Sodium (Protonix Tab*) 40 mg PO QPM [facility] Last Admin: 02/08/19 17:25 Dose: 40 mg Pharmacy Profile Note (Coumadin Daily Reminder*) 0 note FOLLOW UP 1700 [facility] Last Admin: 02/08/19 17:31 Dose: 1 note Terazosin HCl (Hytrin Cap*) 2 mg PO BID [facility] Last Admin: 02/08/19 23:42 Dose: 2 mg Tramadol HCl (Ultram*) 100 mg PO Q12H PRN PRN Reason: PAIN Warfarin Sodium (Coumadin Tab(*)) 2.5 mg PO DAILY@1700 [facility]; Protocol Last Admin: 02/08/19 17:25 Dose: 2.5 mg Home Medications: Home Medications Medication Instructions Recorded Confirmed Type Allopurinol TAB* [Zyloprim 100 MG 100 mg PO QAM 04/02/15 02/08/19 History TAB*] Levothyroxine TAB* [Synthroid 125 0.137 mcg PO BEDTIME 04/02/15 02/08/19 History MCG TAB*] Terazosin CAP* [Hytrin CAP*] 2 mg PO BID 04/03/15 02/08/19 History Warfarin TAB(*) [Coumadin TAB(*)] 2.5 mg PO SEE INSTRUCTIONS 04/03/15 02/08/19 History traMADol TAB* [Ultram*] 100 mg PO Q12H PRN 04/03/15 02/08/19 History Atorvastatin* [Lipitor 20 MG*] 20 mg PO BEDTIME 02/01/16 02/08/19 History Omeprazole CAP (NF) [PriLOSEC CAP*] 20 mg PO QPM 02/01/16 02/08/19 History Furosemide TAB* [Lasix TAB*] 20 mg PO DAILY 06/11/16 02/08/19 History Magnesium Oxide TAB* [MagOx 400 400 mg PO DAILY 04/13/17 02/08/19 History TAB*] Metoprolol Roberto/Hydrochlorothiaz 1 tab PO DAILY 04/13/17 02/08/19 History [Metoprolol Succinate ER/H 50-12.5 mg] Insulin Glargine,Hum.rec.anlog 20 - 24 units SUBCUT BID 02/08/19 02/08/19 History [Basaglar Kwikpen U-100] Insulin Lispro [Humalog Kwikpen 30 units SUBCUT DAILY WITH MEAL 02/08/19 History U-100] Mirabegron (NF) [Myrbetriq (NF)] 25 mg PO DAILY 02/08/19 02/08/19 History Allergies: Allergies Allergy/AdvReac Type Severity Reaction Status Date / Time cephalexin [From Keflex] Allergy Rash Verified 02/08/19 03:10 diphenhydramine Allergy Itching Verified 02/08/19 03:10 Objective - Vital Signs Vital Signs: Vital Signs 02/08/19 02/08/19 02/08/19 08:07 08:37 09:00 Temperature Pulse Rate 91 85 86 Respiratory Rate Blood Pressure 171/103 153/97 (mmHg) O2 Sat by Pulse 97 94 95 Oximetry 02/08/19 02/08/19 02/08/19 09:07 09:08 09:48 Temperature 99.1 F 97.7 F 97.7 F Pulse Rate 76 83 83 Respiratory 21 20 20 Rate Blood Pressure 118/68 155/79 155/79 (mmHg) O2 Sat by Pulse 96 97 97 Oximetry 02/08/19 02/08/1902/08/19 11:01 15:37 19:40 Temperature 97.6 F 97.8 F Pulse Rate 57 64 65 Respiratory 24 18 21 Rate Blood Pressure 121/72 104/57 111/61 (mmHg) O2 Sat by Pulse 98 97 97 Oximetry 02/08/19 02/09/19 20:00 07:52 Temperature 97.2 F Pulse Rate 65 Respiratory 20 18 Rate Blood Pressure 116/41 (mmHg) O2 Sat by Pulse 96 Oximetry - Intake and Output Intake and Output: Intake & Output 02/06/19 02/07/19 02/08/19 02/09/19 11:59 11:59 11:59 11:59 Intake Total 2100 760 Output Total 500 Balance 2100 260 Weight 256 lb 4.8 oz 260 lb 3.2 oz Intake: IV Fluids 2100 60 NS (0.9%) 30 IVPB 100 ABX - CEFTRIAXONE 50 Oral 600 Output: Urine 500 Other: Estimated Void Small # Bowel Movements 1 # Voids 1 ADLs: Meal Record Start: 02/08/19 09: 08 Freq: DAILY@0900,1400,1800 Status: Active Protocol: Created 02/08/19 09:08 System (Rec: 02/08/19 09:08 System MED-M11) Document 02/08/19 14:00 [id number] (Rec: 02/08/19 15:57 [id number] MED-C09) Document 02/08/19 18:00 [id number] (Rec: 02/08/19 18:21 [id number] MED-C09) Intake and Output Start: 02/08/19 02: 29 Freq: Status: Active Protocol: Created 02/08/19 02:29 System (Rec: 02/08/19 02:29 System ED-C24) Intake and Output Start: 02/08/19 09: 08 Freq: DAILY@0600,1400,2200 Status: Active Protocol: Created 02/08/19 09:08 System (Rec: 02/08/19 09:08 System MED-M11) Document 02/08/19 14:00 [id number] (Rec: 02/08/19 15:57 [id number] MED-C09) Document 02/08/19 21:44 [id number] (Rec: 02/08/19 21:46 [id number] MED-C09) Document 02/09/19 03:39 [id number] (Rec: 02/09/19 03:40 [id number] [facility]-C09) - Physical Exam General Physical Exam Comment: Warm and well perfused, in no acute distress General: No Cyanosis, No Anemia, No Jaundice, No Clubbing Lungs and Chest: Yes: Chest Expansion Full, Chest Expansion Symetrica, Percussion Note Resonant, Vessicular Breath Sounds, Crackles - bibasilar fine, Wheezes - expiratory. No: Respiratory Distress, Use of Accessory Muscles Heart Rate and Rhythm: Regular Additional Cardiovascular: Yes: Normal Heart Sounds. No: Heart Murmur Abdominal Exam: Yes: Soft, Abdominal Tenderness - suprapubic, Bowel Sounds Present. No: Distention, Guarding, Rebound Tenderness Results - Results Lab Results: Laboratory Results - last 24 hr 02/08/19 02/08/19 02/08/19 12:19 16:38 23:26 WBC RBC Hgb Hct MCV MCH MCHC RDW Plt Count MPV Neut % (Auto) Lymph % (Auto) [place] % (Auto) Eos % (Auto) Baso % (Auto) Absolute Neuts (auto) Absolute Lymphs (auto) Absolute Monos (auto) Absolute Eos (auto) Absolute Basos (auto) Absolute Nucleated RBC Nucleated RBC % Sodium Potassium Chloride Carbon Dioxide Anion Gap BUN Creatinine Est GFR ( Amer) Est GFR (Non-Af Amer) BUN/Creatinine Ratio Glucose POC Glucose (mg/dL) 282 H 168 H 181 H Calcium 02/09/19 02/09/19 05:58 05:58 WBC 11.2 H RBC 4.68 Hgb 13.9 L Hct 42 MCV 90 MCH 30 MCHC 33 RDW 15 Plt Count 95 L MPV 9.6 Neut % (Auto) 55.7 Lymph % (Auto) 31.3 [place] % (Auto) 12.2 Eos % (Auto) 0.6 Baso % (Auto) 0.2 Absolute Neuts (auto) 6.3 Absolute Lymphs (auto) 3.5 Absolute Monos (auto) 1.4 H Absolute Eos (auto) 0.1 Absolute Basos (auto) 0 Absolute Nucleated RBC 0 Nucleated RBC % 0.2 Sodium 138 Potassium 4.9 Chloride 108 Carbon Dioxide 22 Anion Gap 8 BUN 60 H Creatinine 3.42 H Est GFR ( Amer) 20.8 Est GFR (Non-Af Amer) 17.2 BUN/Creatinine Ratio 17.5 Glucose 136 H POC Glucose (mg/dL) Calcium 8.8 Radiology Results: Patient Name: FREDERICK MEJIA SR Medical Record#: [id number] Ordering Physician: Kim Bernard MD Acct.#: [id number] : 1935 Age: 84 Sex: M Location: EMERGENCY DEPARTMENT Exam Date: 02/08/19245 ADM Status: REG ER Order Information: CHEST AP OR PORT Accession Number: [id number] CPT: 80376 Indication: Weakness. Single frontal view of the chest performed at 0310 hours was reviewed. Comparison is made with previous exam dated April 05, 2017. No mediastinal shift is noted. Heart is of normal size and configuration. Lung urban appear clear. IMPRESSION: NO ACTIVE CARDIOPULMONARY DISEASE IS NOTED. R2 Preliminary Imaging Read R2 <Electronically signed by Adriane Koenig MD in OV> 02/08/19757 Dictated By: Adriane Koenig MD Dictated Date/Time: 02/08/19757 Transcribed Date/Time: 02/08/19756 Copy to: Patient Name: FREDERICK MEJIA SR Medical Record#: [id number] Ordering Physician: Kim Brenard MD Acct.#: [id number] : 1935 Age: 84 Sex: M Location: EMERGENCY DEPARTMENT Exam Date: 02/08/19247 ADM Status: REG ER Order Information: CT ABD/PEL W/O Accession Number: [id number] CPT: 83403 EXAM: CT Abdomen and Pelvis Without Contrast EXAM DATE/TIME: 02/08/2019 3:33 AM CLINICAL HISTORY: 84 years old, male; Pain; Abdominal pain; Generalized; Prior surgery; Surgery date: 6+ months; Additional info: Abd pain TECHNIQUE: Imaging protocol: Axial computed tomography images of the abdomen and pelvis without contrast. Coronal and sagittal reformatted images were created and reviewed. Radiation optimization: All CT scans at this facility use at least one of these dose optimization techniques: automated exposure control; mA and/or kV adjustment per patient size (includes targeted exams where dose is matched to clinical indication); or iterative reconstruction. COMPARISON: A/P WO CT ABD/PEL W/O 04/03/2015 2:32 PM FINDINGS: Lower thorax: Infiltrates are seen in the lower lungs bilaterally. ABDOMEN: Liver: Normal. No mass. Gallbladder and bile ducts: There is evidence of cholelithiasis. The gallbladder wall is normal in appearance. There is no pericholecystic fluid. Pancreas: Normal. No ductal dilation. Spleen: Calcified splenic granuloma is demonstrated. Adrenals: Normal. No mass. Kidneys and ureters: There is a large left renal cyst measuring 8.9 x 9.8 cm. There are multiple right renal cysts with the largest one measuring 2.9 m Stomach and bowel: Colonic diverticula are demonstrated but there is no evidence for acute diverticulitis. Appendix: No evidence of appendicitis. PELVIS: Bladder: The bladder wall is thickened. Reproductive: The prostate gland is mildly enlarged. ABDOMEN and PELVIS: Intraperitoneal space: Normal. No free air. No significant fluid collection. Bones/joints: Multilevel degenerative disc disease is noted. There is 1.5 mm posterior malalignment of L1 in relationship to L2. There is 2 mm posterior malalignment of L2 in relationship to L3. There is approximately 2 mm posterior malalignment of L4 in relationship to L5. Soft tissues: Unremarkable. Vasculature: Arteriosclerotic changes are identified. Lymph nodes: Normal. No enlarged lymph nodes. This report is only to be considered final once signed by the Provider(s) as displayed in the "<Electronically Signed by >" field (s). Absence of a signature indicates the report is in a draft status and still needs to be finalized. In the event this document was created by someone other than the signing Provider, the individual initiating the document will be listed in the "Entered by:" or "Dictated by:" urban. 1 of 2 [facility] Patient Name:FREDERICK MEJIA SR MR:[id number] : 1935 IMPRESSION: Bilateral renal cysts. Infiltrates in the lower lobes bilaterally. Old granulomatous disease. Thickened bladder wall suggesting cystitis. Enlarged prostate gland. Changes involving the spine, as described above. Cholelithiasis. Colonic diverticulosis. COMMENT: Consistent with the [employer]'s Incidental Findings Committee Report (J Am Ericka Radiol 2010): Unless the patient's specific circumstances suggest otherwise, any liver lesion 0.5 cm or less, any cystic kidney lesion less than 1.0 cm, and/or any adrenal lesion 1.0 cm or less not otherwise characterized in this report as possessing suspicious or indeterminate imaging features is/are highly likely to be benign and do not require follow-up imaging or biopsy. To contact [facility] with a general question: [facility] - [phone] For direct physician to physician contact: Physician Hotline - [phone] [facility] ([facility] Facility ID #[id number]) <Electronically signed by Niall Maria MD in [place]> 02/08/19509 Dictated By: Niall Maria MD Dictated Date/Time: 02/08/19509 Transcribed Date/Time: Copy to: EKG Report: EKG reviewed - 4:1 block with atrial flutter. LAFB. Poor R wave progression Assessment - Problem List Assessment: Patient Problems Lung infiltrate on CT (Acute) Urinary tract infection (Acute) Anticoagulated on Coumadin (Chronic) Atrial fibrillation and flutter (Chronic) Chronic kidney disease, stage 4 (severe) (Chronic) Essential hypertension (Chronic) History of melanoma (Chronic) History of pulmonary embolism (Chronic) Hyperlipidemia (Chronic) Primary hypothyroidism (Chronic) Secondary hyperparathyroidism (of renal origin) (Chronic) Sleep apnea (Chronic) Type 2 diabetes mellitus (Chronic) Plan: Urinary tract infection (Acute) This is the primary problem. He may have acute prostatitis also - I will check a PSA. He is receiving ceftriaxone (though he has a history of problems with cephalosoporins- this doesn't appear to be a problem). Lung infiltrate on CT (Acute) These bilateral infiltrates were seen on CT and not on CXR. He has a chronic cough - this may have been exacerbated. I will check an inteferon gold as he is worried about TB - though I don't think this a problem and he doesn't require isolation. Anticoagulated on Coumadin (Chronic) His INR is on target Atrial fibrillation and flutter (Chronic) His rate is controlled Chronic kidney disease, stage 4 (severe) (Chronic) This is exacerbated. We will push fluid as his BUN is higher Essential hypertension (Chronic) This is at the low end type 2 diabetes mellitus (Chronic) This is controlled Secondary diagnoses: History of melanoma (Chronic) History of pulmonary embolism (Chronic) Hyperlipidemia (Chronic) Primary hypothyroidism (Chronic) Secondary hyperparathyroidism (of renal origin) (Chronic) Sleep apnea (Chronic) I explained the above as best I could with his hearing difficulty. I called his Livia - didn't answer the phone. I called his daughter Di Durand - no reply.
[2019-02-09] MEDS: Insulin GLARGINE(*) 1 UNITS UNIT SUBCUT SCH ×3 (08:37→20:40)
[2019-02-09] MEDS: Magnesium Oxide TAB* 400 MG PO SCH (08:38)
[2019-02-09] MEDS: Insulin LISPRO* 1 UNITS UNIT SUBCUT SCH ×5 (08:38→20:40)
[2019-02-09] MEDS: Allopurinol TAB* 100 MG PO SCH (08:38)
[2019-02-09] MEDS: Terazosin CAP* 1 MG PO SCH ×2 (08:38→20:41)
[2019-02-09] MEDS: Metoprolol Succinate XL TAB* 50 MG PO SCH (08:39)
[2019-02-09] MEDS: PTO: Mirabegron (NF) 25 MG TAB PO SCH (08:42)
[2019-02-09 10:06] LABS: INR 2.2 (0.77-1.02)
[2019-02-09] MEDS: cefTRIAXone(*) 1 GM in NS 0.9% 50 ML* 50 ML IVPB SCH (13:19)
[2019-02-09] MEDS: Warfarin TAB(*) 2.5 MG PO SCH (17:49)
[2019-02-09] MEDS: Pantoprazole TAB * 40 MG TAB PO SCH (17:49)
[2019-02-09] MEDS: Levothyroxine TAB* 137 MCG TAB PO SCH (20:41)
[2019-02-09] MEDS: Atorvastatin* 20 MG TAB PO SCH (20:41)
[2019-02-10 06:08] LABS: ABS Basophils 0 10^3/ul (0-0.2); ABS Eosinophils 0.1 10^3/ul (0-0.6); ABS Lymphocytes 3.6 10^3/ul (1.0-4.8); ABS Monocytes 1.2 10^3/ul (0-0.8); ABS Neutrophils 5.6 10^3/ul (1.5-7.7); ABS Nucleated RBC 0 10^3/ul; Eosinophil % 0.5 %; Hematocrit 42 % (36-46); Hemoglobin 13.8 g/dL (14.0-18.0); Lymphocyte % 34.8 %; Mean Corpuscular HGB Conc 33 g/dL (31-36); Mean Corpuscular Hemoglobin 30 pg (27-31); Mean Corpuscular Volume 90 fL (80-94); Mean Platelet Volume 9.1 fL (7.4-10.4); Nucleated Red Blood Cells % 0.1; Platelet Count 104 10^3/uL (150-450); Red Blood Count 4.63 10^6 /uL (4.18-5.48); Red Cell Distribution Width 15 % (10.5-15); White Blood Count 10.5 10^3/uL (3.5-10.8)
[2019-02-10 06:35] LABS: C Reactive Protein 48.74 mg/L (<8.01); Calcium 8.7 mg/dL (8.6-10.3); EGFR Non-African American 17.4 (>60); Potassium 4.8 mmol/L (3.5-5.0)
[2019-02-10] MEDS ORDERED: guaiFENesin/CODIEN 100MG-10MG* 5 ML UDC PO PRN (08:16)
--- NOTE | 2019-02-10 08:16 | PN ---
Subjective - Subjective Reason for Note: Progress Note History: Mr. Lowery continues to have a frequent cough and he is worried about keeping his room-mate awake. He has pain on urination - though this is improving. He has developed "slight" diarrhea with the antibacterials. He has no new symptoms Active Problems: Active Problems Lung infiltrate on CT (Acute) R91.8 Urinary tract infection (Acute) Anticoagulated on Coumadin (Chronic) Z51.81, Z79.01 Atrial fibrillation and flutter (Chronic) I48.91, I48.92 Chronic kidney disease, stage 4 (severe) (Chronic) N18.4 Essential hypertension (Chronic) I10 History of melanoma (Chronic) Z85.820 History of pulmonary embolism (Chronic) Z86.711 Hyperlipidemia (Chronic) E78.5 Primary hypothyroidism (Chronic) E03.9 Secondary hyperparathyroidism (of renal origin) (Chronic) N25.81 Sleep apnea (Chronic) G47.30 Type 2 diabetes mellitus (Chronic) Current Medications: Current Medications Acetaminophen (Tylenol Tab*) 650 mg PO Q4H PRN PRN Reason: FEVER/PAIN Albuterol (Ventolin 2.5 Mg/3 Ml Neb.Cindy*) 2.5 mg INH Q20M PRN PRN Reason: SHORTNESS OF BREATH Allopurinol (Zyloprim Tab*) 100 mg PO QAM [facility] Last Admin: 02/09/19 08:38 Dose: 100 mg Atorvastatin Calcium (Lipitor*) 20 mg PO BEDTIME [facility] Last Admin: 02/09/19 20:41 Dose: 20 mg Dextrose (D50w Syringe 50 Ml*) 12.5 gm IV PUSH .FOR FS < 60 - SS PRN PRN Reason: FS < 60 Dextrose (D50w Syringe 50 Ml*) 12.5 gm IV PUSH .FOR FS < 60 - SS PRN PRN Reason: FS < 60 Guaifenesin/Dextromethorphan (Robitussin Dm*) 10 ml PO Q6H PRN PRN Reason: COUGH Ceftriaxone Sodium 1 gm/ (Sodium Chloride) 50 mls @ 200 mls/hr IVPB Q24H [facility] Last Admin: 02/09/19 13:19 Dose: 200 mls/hr Insulin Glargine (Lantus(*)) 16 units SUBCUT DAILY [facility] Last Admin: 02/09/19 08:37 Dose: 16 unit Insulin Glargine (Lantus(*)) 20 units SUBCUT 2100 [facility] Last Admin: 02/09/19 20:40 Dose: 20 units Insulin Human Lispro (Humalog*) 10 units SUBCUT 1700 [facility] Last Admin: 02/09/19 17:50 Dose: 10 unit Insulin Human Lispro (Humalog*) 0 units SUBCUT ACHS [facility]; Protocol Last Admin: 02/09/19 20:40 Dose: 3 units Levothyroxine Sodium (Synthroid Tab*) 137 mcg PO BEDTIME [facility] Last Admin: 02/09/19 20:41 Dose: 137 mcg Magnesium Oxide (Magox 400 Tab*) 400 mg PO DAILY [facility] Last Admin: 02/09/19 08:38 Dose: 400 mg Metoprolol Succinate (Toprol Xl Tab*) 50 mg PO DAILY [facility] Last Admin: 02/09/19 08:39 Dose: 50 mg Mirabegron (Myrbetriq (Nf)) 25 mg PO DAILY [facility] Last Admin: 02/09/19 08:42 Dose: Not Given Pantoprazole Sodium (Protonix Tab*) 40 mg PO QPM [facility] Last Admin: 02/09/19 17:49 Dose: 40 mg Pharmacy Profile Note (Coumadin Daily Reminder*) 0 note FOLLOW UP 1700 [facility] Last Admin: 02/09/19 17:50 Dose: 1 note Terazosin HCl (Hytrin Cap*) 2 mg PO BID [facility] Last Admin: 02/09/19 20:41 Dose: 2 mg Tramadol HCl (Ultram*) 100 mg PO Q12H PRN PRN Reason: PAIN Warfarin Sodium (Coumadin Tab(*)) 2.5 mg PO DAILY@1700 [facility]; Protocol Last Admin: 02/09/19 17:49 Dose: 2.5 mg Home Medications: Home Medications Medication Instructions Recorded Confirmed Type Allopurinol TAB* [Zyloprim 100 MG 100 mg PO QAM 04/02/15 02/08/19 History TAB*] Levothyroxine TAB* [Synthroid 125 0.137 mcg PO BEDTIME 04/02/15 02/08/19 History MCG TAB*] Terazosin CAP* [Hytrin CAP*] 2 mg PO BID 04/03/15 02/08/19 History Warfarin TAB(*) [Coumadin TAB(*)] 2.5 mg PO SEE INSTRUCTIONS 04/03/15 02/08/19 History traMADol TAB* [Ultram*] 100 mg PO Q12H PRN 04/03/15 02/08/19 History Atorvastatin* [Lipitor 20 MG*] 20 mg PO BEDTIME 02/01/16 02/08/19 History Omeprazole CAP (NF) [PriLOSEC CAP*] 20 mg PO QPM 02/01/16 02/08/19 History Furosemide TAB* [Lasix TAB*] 20 mg PO DAILY 06/11/16 02/08/19 History Magnesium Oxide TAB* [MagOx 400 400 mg PO DAILY 04/13/17 02/08/19 History TAB*] Metoprolol Roberto/Hydrochlorothiaz 1 tab PO DAILY 04/13/17 02/08/19 History [Metoprolol Succinate ER/H 50-12.5 mg] Insulin Glargine,Hum.rec.anlog 20 - 24 units SUBCUT BID 02/08/19 02/08/19 History [Basaglar Kwikpen U-100] Insulin Lispro [Humalog Kwikpen 30 units SUBCUT DAILY WITH MEAL 02/08/19 History U-100] Mirabegron (NF) [Myrbetriq (NF)] 25 mg PO DAILY 02/08/19 02/08/19 History Allergies: Allergies Allergy/AdvReac Type Severity Reaction Status Date / Time cephalexin [From Keflex] Allergy Rash Verified 02/08/19 03:10 diphenhydramine Allergy Itching Verified 02/08/19 03:10 Objective - Vital Signs Vital Signs: Vital Signs 02/09/19 02/09/19 02/09/19 11:29 19:30 23:13 Temperature 97.3 F 98.1 F 98.4 F Pulse Rate 64 61 60 Respiratory 20 21 22 Rate Blood Pressure 128/67 128/62 153/52 (mmHg) O2 Sat by Pulse 99 99 96 Oximetry 02/10/19 02/10/19 03:28 07:37 Temperature 97.9 F 97.5 F Pulse Rate 38 65 Respiratory 18 18 Rate Blood Pressure 122/50 125/54 (mmHg) O2 Sat by Pulse 90 99 Oximetry - Intake and Output Intake and Output: Intake & Output 02/07/19 02/08/19 02/09/19 02/10/19 11:59 11:59 11:59 11:59 Intake Total 2100 1000 2400 Output Total 500 550 Balance 2100 500 1850 Weight 256 lb 4.8 oz 260 lb 3.2 oz 263 lb Intake: IV Fluids 2100 60 30 NS (0.9%) 30 IVPB 100 50 ABX - CEFTRIAXONE 50 Oral 840 2320 Output: Urine 500 550 Other: Estimated Void Small Medium # Bowel Movements 1 1 Estimated Stool Amount Small # Voids 1 2 ADLs: Meal Record Start: 02/08/19 09: 08 Freq: DAILY@0900,1400,1800 Status: Active Protocol: Created 02/08/19 09:08 System (Rec: 02/08/19 09:08 System MED-M11) Document 02/08/19 14:00 [id number] (Rec: 02/08/19 15:57 [id number] MED-C09) Document 02/08/19 18:00 [id number] (Rec: 02/08/19 18:21 [id number] MED-C09) Document 02/09/19 09:00 [id number] (Rec: 02/09/19 10:40 [id number] MED-C11) Document 02/09/19 14:00 [id number] (Rec: 02/09/19 14:12 [id number] MED-C09) Document 02/09/19 18:00 [id number] (Rec: 02/09/19 18:34 [id number] MED-C09) Intake and Output Start: 02/08/19 02: 29 Freq: Status: Active Protocol: Created 02/08/19 02:29 System (Rec: 02/08/19 02:29 System ED-C24) Intake and Output Start: 02/08/19 09: 08 Freq: DAILY@0600,1400,2200 Status: Active Protocol: Created 02/08/19 09:08 System (Rec: 02/08/19 09:08 System MED-M11) Document 02/08/19 14:00 [id number] (Rec: 02/08/19 15:57 [id number] MED-C09) Document 02/08/19 21:44 [id number] (Rec: 02/08/19 21:46 [id number] MED-C09) Document 02/09/19 03:39 [id number] (Rec: 02/09/19 03:40 [id number] MED-C09) Document 02/09/19 14:00 [id number] (Rec: 02/09/19 14:12 [id number] MED-C09) Document 02/09/19 22:00 [id number] (Rec: 02/09/19 22:17 [id number] MED-C09) Document 02/09/19 22:43 [id number] (Rec: 02/09/19 22:43 [id number] MED-C02) Document 02/10/19 04:45 [id number] (Rec: 02/10/19 04:46 [id number] MED-C09) Document 02/10/19 04:46 [id number] (Rec: 02/10/19 04:46 [id number] MED-C02) - Physical Exam General Physical Exam Comment: Warm and well perfused, in no acute distress General: No Cyanosis, No Anemia, No Jaundice, No Clubbing Lungs and Chest: Yes: Chest Expansion Full, Chest Expansion Symetrica, Percussion Note Resonant, Vessicular Breath Sounds, Crackles, Wheezes. No: Respiratory Distress, Use of Accessory Muscles Heart Rate and Rhythm: Regular Additional Cardiovascular: Yes: Pedal Edema - trace. No: Normal Heart Sounds, Heart Murmur Abdominal Exam: Yes: Distention, Soft, Bowel Sounds Present. No: Hepatomegaly, Abdominal Tenderness Results - Results Lab Results: Laboratory Results - last 24 hr 02/09/19 02/09/19 02/09/19 07:32 09:54 09:54 WBC RBC Hgb Hct MCV MCH MCHC RDW Plt Count MPV Neut % (Auto) Lymph % (Auto) [place] % (Auto) Eos % (Auto) Baso % (Auto) Absolute Neuts (auto) Absolute Lymphs (auto) Absolute Monos (auto) Absolute Eos (auto) Absolute Basos (auto) Absolute Nucleated RBC Nucleated RBC % INR (Anticoag Therapy) 2.20 H Sodium Potassium Chloride Carbon Dioxide Anion Gap BUN Creatinine Est GFR ( Amer) Est GFR (Non-Af Amer) BUN/Creatinine Ratio Glucose POC Glucose (mg/dL) 147 H Calcium C-Reactive Protein Prostate Specific Ag 4.608 H 02/09/19 02/09/19 02/09/19 12:10 16:50 20:13 WBC RBC Hgb Hct MCV MCH MCHC RDW Plt Count MPV Neut % (Auto) Lymph % (Auto) [place] % (Auto) Eos % (Auto) Baso % (Auto) Absolute Neuts (auto) Absolute Lymphs (auto) Absolute Monos (auto) Absolute Eos (auto) Absolute Basos (auto) Absolute Nucleated RBC Nucleated RBC % INR (Anticoag Therapy) Sodium Potassium Chloride Carbon Dioxide Anion Gap BUN Creatinine Est GFR ( Amer) Est GFR (Non-Af Amer) BUN/Creatinine Ratio Glucose POC Glucose (mg/dL) 175 H 226 H 169 H Calcium C-Reactive Protein Prostate Specific Ag 02/10/19 02/10/19 05:32 05:32 WBC 10.5 RBC 4.63 Hgb 13.8 L Hct 42 MCV 90 MCH 30 MCHC 33 RDW 15 Plt Count 104 L MPV 9.1 Neut % (Auto) 53.2 Lymph % (Auto) 34.8 [place] % (Auto) 11.2 Eos % (Auto) 0.5 Baso % (Auto) 0.3 Absolute Neuts (auto) 5.6 Absolute Lymphs (auto) 3.6 Absolute Monos (auto) 1.2 H Absolute Eos (auto) 0.1 Absolute Basos (auto) 0 Absolute Nucleated RBC 0 Nucleated RBC % 0.1 INR (Anticoag Therapy) Sodium 138 Potassium 4.8 Chloride 107 Carbon Dioxide 21 L Anion Gap 10 BUN 61 H Creatinine 3.39 H Est GFR ( Amer) 21.0 Est GFR (Non-Af Amer) 17.4 BUN/Creatinine Ratio 18.0 Glucose 127 H POC Glucose (mg/dL) Calcium 8.7 C-Reactive Protein 48.74 H Prostate Specific Ag Assessment - Problem List Assessment: Patient Problems Lung infiltrate on CT (Acute) Urinary tract infection (Acute) Anticoagulated on Coumadin (Chronic) Atrial fibrillation and flutter (Chronic) Chronic kidney disease, stage 4 (severe) (Chronic) Essential hypertension (Chronic) History of melanoma (Chronic) History of pulmonary embolism (Chronic) Hyperlipidemia (Chronic) Primary hypothyroidism (Chronic) Secondary hyperparathyroidism (of renal origin) (Chronic) Sleep apnea (Chronic) Type 2 diabetes mellitus (Chronic) Plan: Lung infiltrate on CT (Acute) He continues to have a cough and wheezing. He likely has a pneumonia (dual infectious diagnosis). I will continue current antibacterial coverage Urinary tract infection (Acute) He continues to have dysuria - though it is improving. We are awaiting the outcome of the urine C and S Anticoagulated on Coumadin (Chronic) INR is therapeutic Atrial fibrillation and flutter (Chronic) rate controlled Chronic kidney disease, stage 4 (severe) (Chronic) The creatinine is coming down to baseline. Essential hypertension (Chronic) on target - continue current Tx Type 2 diabetes mellitus (Chronic) well controlled secondary diagnoses History of melanoma (Chronic) History of pulmonary embolism (Chronic) Hyperlipidemia (Chronic) Primary hypothyroidism (Chronic) Secondary hyperparathyroidism (of renal origin) (Chronic) Sleep apnea (Chronic) I explained the above to Mr. Lowery. I spoke with Di Durand - I updated his situation. I will mobilize him.
[2019-02-10] MEDS: Metoprolol Succinate XL TAB* 50 MG PO SCH (08:40)
[2019-02-10] MEDS: Magnesium Oxide TAB* 400 MG PO SCH (08:43)
[2019-02-10] MEDS: Allopurinol TAB* 100 MG PO SCH (08:43)
[2019-02-10] MEDS: PTO: Mirabegron (NF) 25 MG TAB PO SCH (08:45)
[2019-02-10] MEDS: Terazosin CAP* 1 MG PO SCH ×2 (08:45→23:30)
[2019-02-10] MEDS: Insulin LISPRO* 1 UNITS UNIT SUBCUT SCH ×4 (08:46→17:47)
[2019-02-10] MEDS: Insulin GLARGINE(*) 1 UNITS UNIT SUBCUT SCH ×2 (08:49→23:35)
[2019-02-10] MEDS: cefTRIAXone(*) 1 GM in NS 0.9% 50 ML* 50 ML IVPB SCH (12:34)
[2019-02-10] MEDS: Warfarin TAB(*) 2.5 MG PO SCH (17:12)
[2019-02-10] MEDS: Pantoprazole TAB * 40 MG TAB PO SCH (17:47)
[2019-02-10] MEDS: Levothyroxine TAB* 137 MCG TAB PO SCH (23:30)
[2019-02-10] MEDS: Atorvastatin* 20 MG TAB PO SCH (23:30)
[2019-02-11] MEDS: Insulin LISPRO* 1 UNITS UNIT SUBCUT SCH ×3 (00:58→13:52)
[2019-02-11 06:47] LABS: BUN/Creatinine Ratio 17.7 (8-20); C Reactive Protein 28.06 mg/L (<8.01); Calcium 8.9 mg/dL (8.6-10.3); EGFR African American 21.4 (>60); EGFR Non-African American 17.7 (>60)
[2019-02-11 06:49] LABS: Potassium 5.8 mmol/L (3.5-5.0)
--- NOTE | 2019-02-11 08:22 | PN ---
Subjective - Subjective Reason for Note: Discharge Note History: Patient feels much better. He is sitting out in a chair. He has no dysyuria. He continues to cough, but this is no worse than usual. He wants to go home today - he thinks he can cope. Active Problems: Active Problems Lung infiltrate on CT (Acute) R91.8 Urinary tract infection (Acute) Anticoagulated on Coumadin (Chronic) Z51.81, Z79.01 Atrial fibrillation and flutter (Chronic) I48.91, I48.92 Chronic kidney disease, stage 4 (severe) (Chronic) N18.4 Essential hypertension (Chronic) I10 History of melanoma (Chronic) Z85.820 History of pulmonary embolism (Chronic) Z86.711 Hyperlipidemia (Chronic) E78.5 Primary hypothyroidism (Chronic) E03.9 Secondary hyperparathyroidism (of renal origin) (Chronic) N25.81 Sleep apnea (Chronic) G47.30 Type 2 diabetes mellitus (Chronic) Current Medications: Current Medications Acetaminophen (Tylenol Tab*) 650 mg PO Q4H PRN PRN Reason: FEVER/PAIN Albuterol (Ventolin 2.5 Mg/3 Ml Neb.Cindy*) 2.5 mg INH Q20M PRN PRN Reason: SHORTNESS OF BREATH Allopurinol (Zyloprim Tab*) 100 mg PO QAM [facility] Last Admin: 02/10/19 08:43 Dose: 100 mg Atorvastatin Calcium (Lipitor*) 20 mg PO BEDTIME [facility] Last Admin: 02/10/19 23:30 Dose: 20 mg Dextrose (D50w Syringe 50 Ml*) 12.5 gm IV PUSH .FOR FS < 60 - SS PRN PRN Reason: FS < 60 Dextrose (D50w Syringe 50 Ml*) 12.5 gm IV PUSH .FOR FS < 60 - SS PRN PRN Reason: FS < 60 Guaifenesin/Codeine Phosphate (Robitussin Ac 100mg-10mg*) 5 ml PO Q6H PRN PRN Reason: COUGH Guaifenesin/Dextromethorphan (Robitussin Dm*) 10 ml PO Q6H PRN PRN Reason: COUGH Ceftriaxone Sodium 1 gm/ (Sodium Chloride) 50 mls @ 200 mls/hr IVPB Q24H [facility] Last Admin: 02/10/19 12:34 Dose: 200 mls/hr Insulin Glargine (Lantus(*)) 16 units SUBCUT DAILY [facility] Last Admin: 02/10/19 08:49 Dose: 16 unit Insulin Glargine (Lantus(*)) 20 units SUBCUT 2100 [facility] Last Admin: 02/10/19 23:35 Dose: 20 units Insulin Human Lispro (Humalog*) 10 units SUBCUT 1700 [facility] Last Admin: 02/10/19 17:47 Dose: 10 unit Insulin Human Lispro (Humalog*) 0 units SUBCUT ACHS [facility]; Protocol Last Admin: 02/11/19 00:58 Dose: Not Given Levothyroxine Sodium (Synthroid Tab*) 137 mcg PO BEDTIME [facility] Last Admin: 02/10/19 23:30 Dose: 137 mcg Magnesium Oxide (Magox 400 Tab*) 400 mg PO DAILY [facility] Last Admin: 02/10/19 08:43 Dose: 400 mg Metoprolol Succinate (Toprol Xl Tab*) 50 mg PO DAILY [facility] Last Admin: 02/10/19 08:40 Dose: 50 mg Mirabegron (Myrbetriq (Nf)) 25 mg PO DAILY [facility] Last Admin: 02/10/19 08:45 Dose: Not Given Pantoprazole Sodium (Protonix Tab*) 40 mg PO QPM [facility] Last Admin: 02/10/19 17:47 Dose: 40 mg Pharmacy Profile Note (Coumadin Daily Reminder*) 0 note FOLLOW UP 1700 [facility] Last Admin: 02/10/19 17:50 Dose: 1 note Terazosin HCl (Hytrin Cap*) 2 mg PO BID [facility] Last Admin: 02/10/19 23:30 Dose: 2 mg Tramadol HCl (Ultram*) 100 mg PO Q12H PRN PRN Reason: PAIN Warfarin Sodium (Coumadin Tab(*)) 2.5 mg PO DAILY@1700 [facility]; Protocol Last Admin: 02/10/19 17:12 Dose: 2.5 mg Home Medications: Home Medications Medication Instructions Recorded Confirmed Type Allopurinol TAB* [Zyloprim 100 MG 100 mg PO QAM 04/02/15 02/08/19 History TAB*] Levothyroxine TAB* [Synthroid 125 0.137 mcg PO BEDTIME 04/02/15 02/08/19 History MCG TAB*] Terazosin CAP* [Hytrin CAP*] 2 mg PO BID 04/03/15 02/08/19 History Warfarin TAB(*) [Coumadin TAB(*)] 2.5 mg PO SEE INSTRUCTIONS 04/03/15 02/08/19 History traMADol TAB* [Ultram*] 100 mg PO Q12H PRN 04/03/15 02/08/19 History Atorvastatin* [Lipitor 20 MG*] 20 mg PO BEDTIME 02/01/16 02/08/19 History Omeprazole CAP (NF) [PriLOSEC CAP*] 20 mg PO QPM 02/01/16 02/08/19 History Furosemide TAB* [Lasix TAB*] 20 mg PO DAILY 06/11/16 02/08/19 History Magnesium Oxide TAB* [MagOx 400 400 mg PO DAILY 04/13/17 02/08/19 History TAB*] Metoprolol Roberto/Hydrochlorothiaz 1 tab PO DAILY 04/13/17 02/08/19 History [Metoprolol Succinate ER/H 50-12.5 mg] Insulin Glargine,Hum.rec.anlog 20 - 24 units SUBCUT BID 02/08/19 02/08/19 History [Basaglar Kwikpen U-100] Insulin Lispro [Humalog Kwikpen 30 units SUBCUT DAILY WITH MEAL 02/08/19 History U-100] Mirabegron (NF) [Myrbetriq (NF)] 25 mg PO DAILY 02/08/19 02/08/19 History Allergies: Allergies Allergy/AdvReac Type Severity Reaction Status Date / Time cephalexin [From Keflex] Allergy Rash Verified 02/08/19 03:10 diphenhydramine Allergy Itching Verified 02/08/19 03:10 Objective - Vital Signs Vital Signs: Vital Signs 02/10/19 02/10/19 02/10/19 11:43 15:18 19:15 Temperature 97.9 F 96.3 F 98 F Pulse Rate 69 66 63 Respiratory 20 22 16 Rate Blood Pressure 130/73 138/45 135/60 (mmHg) O2 Sat by Pulse 98 96 97 Oximetry 02/10/19 02/10/19 02/11/19 20:00 23:15 02:59 Temperature 97.9 F 97.6 F Pulse Rate 61 53 Respiratory 20 24 24 Rate Blood Pressure 145/62 121/53 (mmHg) O2 Sat by Pulse 95 95 Oximetry 02/11/19 02/11/19 07:39 08:03 Temperature Pulse Rate 78 Respiratory 18 Rate Blood Pressure 151/70 (mmHg) O2 Sat by Pulse 99 Oximetry - Intake and Output Intake and Output: Intake & Output 02/08/19 02/09/19 02/10/19 02/11/19 11:59 11:59 11:59 11:59 Intake Total 2100 1000 2520 1585 Output Total 500 550 830 Balance 2099 500 1970 755 Weight 256 lb 4.8 oz 260 lb 3.2 oz 263 lb 267 lb 11.2 oz Intake: IV Fluids 2100 60 30 15 NS (0.9%) 30 15 IVPB 100 50 60 ABX - CEFTRIAXONE 50 60 Oral 840 2440 1510 Output: Urine 500 550 830 Other: Estimated Void Small Medium Small Date of Last Bowel 264093 Movement # Bowel Movements 1 1 0 Estimated Stool Amount Small Medium # Voids 1 2 1 ADLs: Meal Record Start: 02/08/19 09: 08 Freq: DAILY@0900,1400,1800 Status: Active Protocol: Created 02/08/19 09:08 System (Rec: 02/08/19 09:08 System MED-M11) Document 02/08/19 14:00 [id number] (Rec: 02/08/19 15:57 [id number] MED-C09) Document 02/08/19 18:00 [id number] (Rec: 02/08/19 18:21 [id number] MED-C09) Document 02/09/19 09:00 [id number] (Rec: 02/09/19 10:40 [id number] MED-C11) Document 02/09/19 14:00 [id number] (Rec: 02/09/19 14:12 [id number] MED-C09) Document 02/09/19 18:00 [id number] (Rec: 02/09/19 18:34 [id number] MED-C09) Document 02/10/19 09:00 [id number] (Rec: 02/10/19 09:30 [id number] MED-C11) Document 02/10/19 13:37 [id number] (Rec: 02/10/19 13:37 [id number] MED-C09) Document 02/10/19 18:00 [id number] (Rec: 02/11/19 00:03 [id number] MED-C02) Intake and Output Start: 02/08/19 02: 29 Freq: Status: Active Protocol: Created 02/08/19 02:29 System (Rec: 02/08/19 02:29 System ED-C24) Intake and Output Start: 02/08/19 09: 08 Freq: DAILY@0600,1400,2200 Status: Active Protocol: Created 02/08/19 09:08 System (Rec: 02/08/19 09:08 System MED-M11) Document 02/08/19 14:00 [id number] (Rec: 02/08/19 15:57 [id number] MED-C09) Document 02/08/19 21:44 [id number] (Rec: 02/08/19 21:46 [id number] MED-C09) Document 02/09/19 03:39 [id number] (Rec: 02/09/19 03:40 [id number] MED-C09) Document 02/09/19 14:00 [id number] (Rec: 02/09/19 14:12 [id number] MED-C09) Document 02/09/19 22:00 [id number] (Rec: 02/09/19 22:17 [id number] MED-C09) Document 02/09/19 22:43 [id number] (Rec: 02/09/19 22:43 [id number] MED-C02) Document 02/10/19 04:45 [id number] (Rec: 02/10/19 04:46 [id number] MED-C09) Document 02/10/19 04:46 [id number] (Rec: 02/10/19 04:46 [id number] MED-C02) Document 02/10/19 14:00 [id number] (Rec: 02/10/19 14:14 [id number] MED-C09) Document 02/10/19 22:00 [id number] (Rec: 02/11/19 00:34 [id number] MED-C09) Document 02/11/19 05:27 [id number] (Rec: 02/11/19 05:28 [id number] MED-C09) - Physical Exam General: No Cyanosis, No Anemia, No Jaundice, No Clubbing Lungs and Chest: Yes: Chest Expansion Full, Chest Expansion Symetrica, Percussion Note Resonant, Vessicular Breath Sounds. No: Crackles, Wheezes Heart Rate and Rhythm: Regular Additional Cardiovascular: Yes: Normal Heart Sounds, Heart Murmur. No: Pedal Edema Abdominal Exam: Yes: Soft, Bowel Sounds Present. No: Distention, Abdominal Tenderness Results - Results Lab Results: Laboratory Results - last 24 hr 02/10/19 02/10/19 02/10/19 08:13 11:53 16:49 Sodium Potassium Chloride Carbon Dioxide Anion Gap BUN Creatinine Est GFR ( Amer) Est GFR (Non-Af Amer) BUN/Creatinine Ratio Glucose POC Glucose (mg/dL) 133 H 216 H 231 H Calcium C-Reactive Protein 02/10/19 02/11/19 02/11/19 23:29 06:10 08:04 Sodium 140 Potassium 5.8 H Chloride 108 Carbon Dioxide 23 Anion Gap 9 BUN 59 H Creatinine 3.33 H Est GFR ( Amer) 21.4 Est GFR (Non-Af Amer) 17.7 BUN/Creatinine Ratio 17.7 Glucose 139 H POC Glucose (mg/dL) 91 155 H Calcium 8.9 C-Reactive Protein 28.06 H Assessment - Problem List Assessment: Patient Problems Lung infiltrate on CT (Acute) Urinary tract infection (Acute) Anticoagulated on Coumadin (Chronic) Atrial fibrillation and flutter (Chronic) Chronic kidney disease, stage 4 (severe) (Chronic) Essential hypertension (Chronic) History of melanoma (Chronic) History of pulmonary embolism (Chronic) Hyperlipidemia (Chronic) Primary hypothyroidism (Chronic) Secondary hyperparathyroidism (of renal origin) (Chronic) Sleep apnea (Chronic) Type 2 diabetes mellitus (Chronic) Plan: He is feeling much better. I will have PT evaluate and if he is safe I will discharge him home on oral antibacterials.
[2019-02-11] MEDS: Insulin GLARGINE(*) 1 UNITS UNIT SUBCUT SCH (08:38)
[2019-02-11] MEDS: Metoprolol Succinate XL TAB* 50 MG PO SCH (08:40)
[2019-02-11] MEDS: Terazosin CAP* 1 MG PO SCH (08:40)
[2019-02-11] MEDS: Magnesium Oxide TAB* 400 MG PO SCH (08:41)
[2019-02-11] MEDS: Allopurinol TAB* 100 MG PO SCH (08:41)
[2019-02-11] MEDS: PTO: Mirabegron (NF) 25 MG TAB PO SCH (08:55)
[2019-02-11] MEDS ORDERED: Cefdinir cap* 300 MG CAP PO SCH (09:00)
--- NOTE | 2019-02-11 13:28 | DS ---
DISCHARGE SUMMARY: DATE OF ADMISSION: 02/08/19 DATE OF DISCHARGE: 02/11/19 DISCHARGE DIAGNOSES: 1. Urinary tract infection. 2. Pneumonia. 3. Type 2 diabetes mellitus, exacerbated. COMORBIDITIES: Anticoagulation, on warfarin; atrial fibrillation and flutter; stage 3 chronic kidney disease; essential hypertension; history of melanoma; history of pulmonary embolism; hyperlipidemia; primary hypothyroidism; secondary hyperparathyroidism and sleep apnea. HISTORY: Marco Antonio Lowery is an 84-year-old right-handed white male, his presentation is documented in Raiza Rodriguez DO's admitting history and physical. In short, he presented with dysuria, which was severe for 2 days. He had previous bladder infections, but nothing as severe as this. This was excruciating. He also has had a cough. He had decreased energy and appetite, nausea and increased sputum. PHYSICAL EXAMINATION: Temperature 98 degrees, heart rate 85, respirations 16, pulse oximetry on 3 L 94%, blood pressure 153/97. He had clear lungs on examination. Abdomen: No suprapubic tenderness. 1+ pitting edema. INITIAL INVESTIGATIONS: White count 14.2, hemoglobin 15.8, platelets 111, INR 2.01, sodium 137, potassium 4.9, chloride 101, bicarbonate 25, BUN 62, creatinine of 3.69, glucose 203, lactic acid 1.4. Troponin I 0.04, BNP 163. Urinalysis: A 2+ protein, 3+ blood, 3+ esterase. Influenza A and B were negative. CT scan of the pelvis; bilateral renal cysts, infiltrates in the both lower lobes, old granulomatous disease, thickened bladder wall suggesting cystitis. Enlarged prostate. EKG, atrial flutter 4:1 block. INITIAL IMPRESSION: 1. Acute cystitis versus prostatitis. He was started on ceftriaxone to cover both bladder and lungs. He had listed allergy to CEPHALEXIN, however, this did not appear to be of any significance. 2. Acute kidney injury. He was given IV fluids and his furosemide was held. 3. Atrial flutter. This was stable without tachycardia. He was adequately anticoagulated. We steepened his insulin coverage. INVESTIGATIONS: At presentation, his percent neutrophils was 65.9. His white came down to 10.5 and his neutrophils to 53.2 on the penultimate day in the hospital. His chemistry on the day of discharge, his potassium was little elevated at 5.8, BUN 59, creatinine 3.33, glucose 139, C-reactive protein came down to 28.06. Serology was negative for flu. Microbiology: Negative urine for legionella and strep pneumoniae. E. coli from urine grew, was sensitive to all antibiotics. HOSPITAL COURSE: He had a steady improvement during his hospital stay. The dysuria disappeared. He continued to have a chronic cough. On the day of discharge, he is feeling well enough to go home. He has no further dysuria. PHYSICAL EXAMINATION ON THE DAY OF DISCHARGE: Vital Signs: Temperature 97.6, pulse rate 78, oxygen saturation 99%, blood pressure 151/70. No cyanosis, anemia, jaundice, clubbing, or lymphadenopathy. Cardiovascular System: His pulse was irregular. Heart sounds were normal. No added sounds or murmurs. Trace edema. Respiratory System: His chest was clear. Abdomen: Obese, soft, nontender. Bowel sounds present. Nervous System: He is very deaf, but he is alert and oriented and insightful about his circumstances. ASSESSMENT AND PLAN: 1. Urinary tract infection, I note, but his PSA was slightly elevated at 4.6, which may be due to his benign prostatic hypertrophy, certainly is not diagnostic of an acute prostatitis. I will give him therefore another 5 days of treatment with cefdinir and oral equivalent to ceftriaxone. 2. Bibasilar infiltrates. These were found on the CT scan and not on the chest x- ray. He has a cough. He may also have patchy pneumonia. This should respond also to the cefdinir. His C-reactive protein is coming down and since I assume he is improving. 3. Acute on chronic renal insufficiency. This is recovering. His potassiums is little high today. This may be secondary to hemolysis of the sample, I will check this again next week. 4. Anticoagulation. This is on target. 5. Atrial flutter. His rate is controlled. 6. Essential hypertension, controlled. 7. History of melanoma and no evidence of recurrence. 8. Hyperlipidemia. Continue current medication. 9. Primary hypothyroidism. Continue current medication. 10. Renal osteodystrophy. Continue current medication. DISCHARGE MEDICATIONS: 1. Cefdinir 300 mg twice daily for 5 days. 2. Levothyroxine 137 mcg per day. 3. Allopurinol 100 mg daily. 4. Terazosin 2 mg twice daily. 5. Warfarin 2.5 mg daily. 6. Tramadol 100 mg q.12 hours as needed. 7. Atorvastatin 20 mg q.h.s. 8. Omeprazole 20 mg q.h.s. 9. Furosemide 20 mg q.a.m. 10 Magnesium oxide 400 mg daily. 11. Metoprolol/hydrochlorothiazide 50/12.5 mg daily. 12. Mirabegron 25 mg daily. 13. Lispro insulin 30 units with meals. 14. Glargine insulin 20 to 24 units subcutaneously twice daily per usual regimen. He will follow with me for a transition of care visit early next week. I spoke to his daughter, who will help get him home, and I will have physical therapist see whether indeed he can mobilize and is safe prior to his discharge. [id number]/[facility] #: [id number] [id number]
[2019-02-11 14:28] VITALS: BP 144/75
[2019-02-11 15:48] LABS: TB Mitogen minus Nil Result 8.76 IU/mL; TB Nil Result 0.04 IU/mL; TB1 Ag minus Nil Result 0.42 IU/mL; TB2 Ag minus Nil Result 0.44 IU/mL
== END 2019-02-11 14:15 | disposition home health service (06) | DRG 689 ==
LOC: ED 02:16 → MED 08:42 → OBSVTOIN 02-09 16:00
PROVIDERS: ADMIT Internal Medicine; ATTEND Internal Medicine
DX: N39.0 Urinary tract infection, site not specified (principal); J18.9 Pneumonia, unspecified organism; I48.92 Unspecified atrial flutter; N25.81 Secondary hyperparathyroidism of renal origin; N17.9 Acute kidney failure, unspecified; N18.4 Chronic kidney disease, stage 4 (severe); J44.0 Chronic obstructive pulmonary disease with (acute) lower respiratory infection; I13.0 Hypertensive heart and chronic kidney disease with heart failure and stage 1 through stage 4 chronic kidney disease, or unspecified chronic kidney disease; E11.22 Type 2 diabetes mellitus with diabetic chronic kidney disease; I48.91 Unspecified atrial fibrillation; N25.0 Renal osteodystrophy; I50.9 Heart failure, unspecified; I12.9 Hypertensive chronic kidney disease with stage 1 through stage 4 chronic kidney disease, or unspecified chronic kidney disease; B96.20 Unspecified Escherichia coli [E. coli] as the cause of diseases classified elsewhere; E78.5 Hyperlipidemia, unspecified; E03.8 Other specified hypothyroidism; H91.90 Unspecified hearing loss, unspecified ear; M51.36 Other intervertebral disc degeneration, lumbar region; K57.30 Diverticulosis of large intestine without perforation or abscess without bleeding; K80.20 Calculus of gallbladder without cholecystitis without obstruction; N28.1 Cyst of kidney, acquired; G47.30 Sleep apnea, unspecified; Z79.01 Long term (current) use of anticoagulants; Z86.711 Personal history of pulmonary embolism; Z85.820 Personal history of malignant melanoma of skin; Z86.718 Personal history of other venous thrombosis and embolism; Z79.899 Other long term (current) drug therapy; Z88.8 Allergy status to other drugs, medicaments and biological substances; Z80.7 Family history of other malignant neoplasms of lymphoid, hematopoietic and related tissues; Z87.891 Personal history of nicotine dependence; Z79.4 Long term (current) use of insulin
CPT/HCPCS: 36415; 71045; 74176; 80048; 80053; 81003; 81015; 83605; 83880; 84153; 84484; 85025; 85610; 85730; 86140; 86480; 87040; 87077; 87086; 87186; 87899; 93005; 99285; A9270-GY; G0378; G8978-GP-CK; G8979-GP-CI; J0696; J2543

== ENCOUNTER 2021-01-29 16:55 | Inpatient (IN) ==
[2021-01-29 18:54] LABS: Hematocrit 45 % (42-52); Hemoglobin 14.8 g/dL (14.0-18.0); Mean Corpuscular HGB Conc 33 g/dL (31-36); Mean Corpuscular Hemoglobin 32 pg (27-31); Mean Corpuscular Volume 97 fL (80-94); Platelet Count 81 10^3/uL (150-450); Red Blood Count 4.67 10^6 /uL (4.18-5.48); Red Cell Distribution Width 16 % (10-15); White Blood Count 7.5 10^3/uL (3.5-10.8)
[2021-01-29 18:59] LABS: INR 1.5 (0.82-1.09)
[2021-01-29 19:09] LABS: ALT 47 U/L (7-52); AST 14 U/L (13-39); Albumin 4.1 g/dL (3.2-5.2); Albumin/Globulin Ratio 1.5 (1-3); Alkaline Phosphatase 113 U/L (34-104); BUN/Creatinine Ratio 18.3 (8-20); Blood Urea Nitrogen 70 mg/dL (6-24); C Reactive Protein 26.29 mg/L (<8.01); CO2 Carbon Dioxide 28 mmol/L (22-32); Calcium 9.2 mg/dL (8.6-10.3); Chloride 103 mmol/L (101-111); EGFR African American 18.2 (>60); EGFR Non-African American 15.1 (>60); Globulin 2.8 g/dL (2-4); Glucose 319 mg/dL (70-100); Magnesium 2.6 mg/dL (1.9-2.7); Sodium 136 mmol/L (135-145); Total Protein 6.9 g/dL (6.4-8.9)
[2021-01-29 19:13] LABS: Anion Gap 5 mmol/L (2-11); Potassium 5.7 mmol/L (3.5-5.0)
[2021-01-29 19:18] LABS: Troponin I 0.05 ng/mL (<0.03)
[2021-01-29 20:09] LABS: ABS Lymphocytes 2.4 10^3/ul (1.0-4.8); ABS Monocytes 0.9 10^3/ul (0-0.8); ABS Neutrophils 4.2 10^3/ul (1.5-7.7); Eosinophil % 0.2 %; Lymphocyte % 31.5 %; Nucleated Red Blood Cells % 0.1
[2021-01-29] MEDS ORDERED: Ondansetron 4 mg VIAL 2 MG/ML 2 ml VIAL IV PRN (20:21)
[2021-01-29] MEDS ORDERED: Dextrose 50% Syringe 50 ml 25 GM/50 ML SYRINGE IV PUSH PRN (20:27)
[2021-01-29] MEDS ORDERED: Enoxaparin 60 MG/0.6 ML SYR SUBCUT ONE (20:30)
[2021-01-29] MEDS ORDERED: Furosemide 40 mg/4 ml IV VIAL IV SLOW PU ONE (20:33)
[2021-01-29 20:48] LABS: Urine Appearance Cloudy; Urine Bilirubin Negative (Negative); Urine Blood 1+ (Negative); Urine Color Yellow; Urine Glucose 3+(>=500 mg/dL) (Negative); Urine Ketones Negative (Negative); Urine Nitrite Negative (Negative); Urine Protein 2+(100 mg/dL) (Negative); Urine Specific Gravity 1.009 (1.010-1.030); Urine Urobilinogen Negative (Negative)
[2021-01-29] MEDS ORDERED: Albuterol HFA INHALER 8 gm MDI INH PRN (20:51)
[2021-01-29 20:54] LABS: Urine Bacteria 1+ (Absent); Urine Red Blood Cell 2+(6-10/hpf) (Absent); Urine White Blood Cell 3+(>20/hpf) (Absent)
[2021-01-29 20:56] LABS: % Iron Saturation 15 % (15-55); Iron 49 ug/dL (50-212); Total Iron Binding Capacity 322 mcg/dL (250-450); Transferrin 230 mg/dL (203-362); Unsaturated Iron Binding < 307 ug/dL
[2021-01-29 21:11] LABS: TSH Ultra Thyroid Stim Horm 7.84 mcIU/mL (0.34-5.60)
[2021-01-29 21:18] LABS: Ferritin 58.6 ng/mL (24-336)
[2021-01-29 21:22] LABS: Vitamin B12 711 pg/mL (180-914)
[2021-01-29 22:15] LABS: Influenza A Molecular Negative (Negative); Influenza B Molecular Negative (Negative)
[2021-01-29 22:27] LABS: Folate 7.72 ng/mL (>3.99)
[2021-01-30] MEDS: Insulin GLARGINE 100 un/ml 10 ml VIAL SUBCUT SCH ×3 (01:13→20:16)
[2021-01-30] MEDS: Mometasone/Formoter 200/5 MDI INH SCH ×3 (06:20→19:32)
[2021-01-30 07:01] LABS: Hematocrit 44 % (42-52); Hemoglobin 14.4 g/dL (14.0-18.0); Mean Corpuscular HGB Conc 33 g/dL (31-36); Mean Corpuscular Hemoglobin 32 pg (27-31); Mean Corpuscular Volume 97 fL (80-94); Mean Platelet Volume 9.9 fL (7.4-10.4); Platelet Count 73 10^3/uL (150-450); Red Blood Count 4.53 10^6 /uL (4.18-5.48); Red Cell Distribution Width 16 % (10-15); White Blood Count 7.6 10^3/uL (3.5-10.8)
[2021-01-30 07:16] LABS: BUN/Creatinine Ratio 18.3 (8-20); EGFR African American 18.8 (>60); EGFR Non-African American 15.5 (>60); Magnesium 2.5 mg/dL (1.9-2.7); Potassium 4.8 mmol/L (3.5-5.0)
[2021-01-30 07:22] LABS: ABS Lymphocytes 2.5 10^3/ul (1.0-4.8); Eosinophil % 0.3 %; Lymphocyte % 33.2 %
[2021-01-30] MEDS ORDERED: Furosemide 40 mg/4 ml IV VIAL IV SLOW PU SCH (08:00)
[2021-01-30] MEDS: Cholecalciferol (VIT D3) 1,000 unit TAB PO SCH (10:11)
[2021-01-30] MEDS ORDERED: Furosemide 20 mg/2 ml IV VIAL IV ONE (10:50)
[2021-01-30] MEDS ORDERED: Perflutren Lipid Microsphere 3 ML VIAL ONE (11:56)
[2021-01-30] MEDS: Furosemide 40 mg/4 ml IV VIAL IV SCH (16:44)
[2021-01-30] MEDS ORDERED: cefTRIAXone 1 gm/50 mL NS BAG 1 GM/50 ML BAG IVPB SCH (23:00)
[2021-01-31 06:33] LABS: ABS Lymphocytes 2.6 10^3/ul (1.0-4.8); ABS Monocytes 0.9 10^3/ul (0-0.8); ABS Neutrophils 4.2 10^3/ul (1.5-7.7); Eosinophil % 0.2 %; Hematocrit 44 % (42-52); Hemoglobin 14.7 g/dL (14.0-18.0); Lymphocyte % 33.8 %; Mean Corpuscular HGB Conc 34 g/dL (31-36); Mean Corpuscular Hemoglobin 32 pg (27-31); Mean Corpuscular Volume 97 fL (80-94); Mean Platelet Volume 9.6 fL (7.4-10.4); Nucleated Red Blood Cells % 0.1; Platelet Count 87 10^3/uL (150-450); Red Blood Count 4.55 10^6 /uL (4.18-5.48); Red Cell Distribution Width 16 % (10-15); White Blood Count 7.8 10^3/uL (3.5-10.8)
[2021-01-31 06:39] LABS: BUN/Creatinine Ratio 18.5 (8-20); Calcium 9.3 mg/dL (8.6-10.3); EGFR African American 18.4 (>60); EGFR Non-African American 15.2 (>60); Magnesium 2.4 mg/dL (1.9-2.7); Potassium 4.7 mmol/L (3.5-5.0); Uric Acid 7.7 mg/dL (4.4-7.6)
[2021-01-31] MEDS: Mometasone/Formoter 200/5 MDI INH SCH ×2 (07:53→19:40)
[2021-01-31] MEDS: Furosemide 40 mg/4 ml IV VIAL IV SCH (09:15)
[2021-01-31] MEDS: Cholecalciferol (VIT D3) 1,000 unit TAB PO SCH (09:15)
[2021-01-31] MEDS: Insulin GLARGINE 100 un/ml 10 ml VIAL SUBCUT SCH ×2 (09:15→22:08)
[2021-01-31 15:09] LABS: BUN/Creatinine Ratio 18.6 (8-20); Calcium 9.3 mg/dL (8.6-10.3); EGFR African American 17.9 (>60); EGFR Non-African American 14.8 (>60)
[2021-02-01 08:39] LABS: Hematocrit 43 % (42-52); Hemoglobin 13.8 g/dL (14.0-18.0); Mean Corpuscular HGB Conc 32 g/dL (31-36); Mean Corpuscular Hemoglobin 32 pg (27-31); Mean Corpuscular Volume 97 fL (80-94); Mean Platelet Volume 9.5 fL (7.4-10.4); Platelet Count 88 10^3/uL (150-450); Red Blood Count 4.39 10^6 /uL (4.18-5.48); Red Cell Distribution Width 16 % (10-15); White Blood Count 7.5 10^3/uL (3.5-10.8)
[2021-02-01] MEDS: Mometasone/Formoter 200/5 MDI INH SCH ×2 (08:49→19:46)
[2021-02-01 08:53] LABS: BUN/Creatinine Ratio 17.9 (8-20); Calcium 9.4 mg/dL (8.6-10.3); EGFR African American 17.2 (>60); EGFR Non-African American 14.2 (>60); Magnesium 2.3 mg/dL (1.9-2.7); Potassium 4.5 mmol/L (3.5-5.0)
[2021-02-01 09:20] LABS: ABS Lymphocytes 2.9 10^3/ul (1.0-4.8); ABS Neutrophils 3.5 10^3/ul (1.5-7.7); Eosinophil % 0.4 %; Lymphocyte % 38.2 %; Nucleated Red Blood Cells % 0.1
[2021-02-01] MEDS: Cholecalciferol (VIT D3) 1,000 unit TAB PO SCH (09:29)
[2021-02-01] MEDS: Insulin GLARGINE 100 un/ml 10 ml VIAL SUBCUT SCH ×2 (09:32→21:28)
[2021-02-01] MEDS ORDERED: Warfarin per PHARMACY **NOTE FOLLOW UP SCH (14:00)
[2021-02-01 16:09] LABS: INR 1.47 (0.82-1.09)
[2021-02-02] MEDS: Mometasone/Formoter 200/5 MDI INH SCH (07:38)
[2021-02-02] MEDS: Cholecalciferol (VIT D3) 1,000 unit TAB PO SCH (10:04)
[2021-02-02] MEDS: Insulin GLARGINE 100 un/ml 10 ml VIAL SUBCUT SCH (10:04)
[2021-02-02 10:07] LABS: BUN/Creatinine Ratio 18.3 (8-20); Calcium 9.5 mg/dL (8.6-10.3); EGFR African American 17.4 (>60); EGFR Non-African American 14.4 (>60); Magnesium 2.2 mg/dL (1.9-2.7); Potassium 4.3 mmol/L (3.5-5.0)
[2021-02-02 12:01] VITALS: BP 122/51
== END 2021-02-02 13:05 | disposition home or self-care (01) | DRG 291 ==
LOC: ED 16:55 → MED 20:21
PROVIDERS: ADMIT Internal Medicine; ATTEND Pediatrics